=== PATIENT | male | born 1960 | race Caucasian/White ===

== ENCOUNTER 2016-07-10 23:14 | Emergency (ER) | payer SELFPAY ==
[2016-07-10 23:22] VITALS: BP 115/84
[2016-07-11 01:25] LABS: Basophils % (Auto) 0.7 % (0.0-1.8); Eosinophils % (Auto) 1.5 % (0.0-4.3); Hematocrit 41.1 % (35.5-45.6); Hemoglobin 13.4 gm/dl (11.8-15.2); Mean Corpuscular HGB Conc 33 % (32-34); Mean Corpuscular Hemoglobin 27 pg (28-32); Mean Corpuscular Volume 83 fl (84-94); Platelet Count 172 K/mm3 (140-440); Red Blood Count 4.96 M/mm3 (3.65-5.03); Red Cell Distribution Width 15.4 % (13.2-15.2); White Blood Count 8.4 K/mm3 (4.5-11.0)
[2016-07-11 02:19] LABS: Alanine Aminotransferase 24 units/L (7-56); Albumin 4.2 g/dL (3.9-5); Albumin/Globulin Ratio 1.4 %; Alkaline Phosphatase 47 units/L (35-129); Anion Gap 16 mmol/L; BUN/Creatinine Ratio 15.71; Bilirubin,Total 0.4 mg/dL (0.1-1.2); Blood Urea Nitrogen 11 mg/dL (9-20); Calcium 9.4 mg/dL (8.4-10.2); Carbon Dioxide 27 mmol/L (22-30); Chloride 98.9 mmol/L (98-107); Glucose 114 mg/dL (75-100); Lipase 16 units/L (13-60); Sodium 138 mmol/L (137-145); Total Protein 7.1 g/dL (6.3-8.2)
--- NOTE | 2016-07-13 19:04 | ED Elopement Review ---
ED Pt Elopement review - Results review Lab results: Laboratory Tests 07/10/16 07/11/16 07/11/16 23:34 00:39 00:39 WBC 8.4 RBC 4.96 Hgb 13.4 Hct 41.1 MCV 83 L MCH 27 L MCHC 33 RDW 15.4 H Plt Count 172 Lymph % (Auto) 46.8 H Letcher % (Auto) 7.7 H Eos % (Auto) 1.5 Baso % (Auto) 0.7 Lymph # 3.9 Letcher # 0.6 Eos # 0.1 Baso # 0.1 Seg Neutrophils % 43.3 Seg Neutrophils # 3.6 Sodium 138 Potassium 4.0 Chloride 98.9 Carbon Dioxide 27 Anion Gap 16 BUN 11 Creatinine 0.7 L Estimated GFR > 60 BUN/Creatinine Ratio 15.71 Glucose 114 H POC Glucose 111 H Calcium 9.4 Total Bilirubin 0.4 AST 19 ALT 24 Alkaline Phosphatase 47 Total Protein 7.1 Albumin 4.2 Albumin/Globulin Ratio 1.4 Lipase 16 - Call Back decision Pt Call Back Decision: Call pt to return to ED [facility] (testicular pain should be further evaluated)
== END 2016-07-11 04:10 | disposition left against medical advice (07) ==
LOC: ED 23:14
DX: R73.9 Hyperglycemia, unspecified (principal); Z53.21 Procedure and treatment not carried out due to patient leaving prior to being seen by health care provider
CPT/HCPCS: 36415; 80053; 82962; 83690; 85025

== ENCOUNTER 2020-11-06 14:05 | Emergency (ER) | payer BC ==
[2020-11-06 16:00] VITALS: BP 127/69
--- NOTE | 2020-11-06 17:32 | Event Note ---
ED Screening Note Date of service: 11/06/20 Time: 17:31 ED Screening Note: 60-year-old -French male presents to the emergency room complaining of chills shortness of breath cough and night sweats. Patient has a past medical history of diabetes. Patient reports he has never felt this bad before. He is vaccinated. Does have a primary care provider Dr. Miller. This initial assessment/diagnostic orders/clinical plan/treatment(s) is/are subject to change based on patients health status, clinical progression and re- assessment by fellow clinical providers in the ED. Further treatment and workup at subsequent clinical providers discretion. Patient/guardian urged not to elope from the ED as their condition may be serious if not clinically assessed and managed. Initial orders include: cxr, cbc, cmp
--- NOTE | 2020-11-06 17:57 | XRay Report ---
CHEST 2 VIEWS 1740 INDICATION / CLINICAL INFORMATION: sob,cough COMPARISON: None available. FINDINGS: SUPPORT DEVICES: None. HEART / MEDIASTINUM: No significant abnormality. LUNGS / PLEURA: On lateral projection increased density is seen in the posterior base which is diffic ult to visualize well on PA view for laterality. I am concerned this represents mild basilar infiltra te. No pleural effusions are seen. PA view shows bilateral nipple shadows. No pneumothorax. ADDITIONAL FINDINGS: No significant additional findings. IMPRESSION: Question of basilar infiltrate as above Signer Name: Manan Garcia MD Signed: 11/06/2020 5:52 PM Workstation Name: [id number]
[2020-11-06 18:19] LABS: Basophils % (Auto) 0.8 % (0.0-1.8); Eosinophils # (Auto) 0.1 K/mm3 (0.0-0.4); Eosinophils % (Auto) 0.9 % (0.0-4.3); Hematocrit 42.5 % (35.5-45.6); Hemoglobin 14.4 gm/dl (11.8-15.2); Lymphocytes # (Auto) 3.1 K/mm3 (1.2-5.4); Lymphocytes % (Auto) 51.8 % (13.4-35.0); Mean Corpuscular HGB Conc 34 % (32-34); Mean Corpuscular Volume 84 fl (84-94); Monocytes # (Auto) 0.4 K/mm3 (0.0-0.8); Monocytes % (Auto) 6.5 % (0.0-7.3); Platelet Count 119 K/mm3 (140-440); Red Blood Count 5.04 M/mm3 (3.65-5.03); Red Cell Distribution Width 15.3 % (13.2-15.2)
[2020-11-06 18:26] LABS: Alanine Aminotransferase 13 units/L (7-56); Albumin 4.1 g/dL (3.9-5); BUN/Creatinine Ratio 13; Blood Urea Nitrogen 12 mg/dL (9-20); Calcium 9.6 mg/dL (8.4-10.2); Hemolysis Index 6
--- NOTE | 2020-11-06 18:56 | Emergency Department Report ---
ED General Adult HPI - General Chief complaint: Upper Respiratory Infection Stated complaint: COLD SYMPTOMS Time Seen by Provider: 11/06/20 18:43 Source: patient Mode of arrival: Ambulatory Limitations: No Limitations - History of Present Illness Initial comments: 60-year-old male patient with history of diabetes presents emergency department with complaints of cough, chills, and body aches starting this week. No known sick contacts. No current steroid or antibiotic use. No recent travel. Patient received his COVID-19 vaccination series. No history of pre-existing lung conditions. Patient has never been diagnosed with pneumonia. Denies fever , chest pain, palpitations, wheezing, syncope, lower extremity pain/swelling. Denies all other complaints at this time. - Related Data Previous Rx's Medication Instructions Recorded Last Taken Type Amoxicillin/Potassium Clav 2 each PO BID #28 tab.er.12h 11/06/20 Unknown Rx [Augmentin XR 1000MG 12HR] Azithromycin [Zithromax Z-RAOMNA] 250 mg PO DAILY #6 tablet 11/06/20 Unknown Rx Allergies Allergy/AdvReac Type Severity Reaction Status Date / Time No Known Allergies Allergy Unverified 07/10/16 23:43 ED Review of Systems ROS: Stated complaint: COLD SYMPTOMS Other details as noted in HPI Other: GENERAL: Positive for chills. ENT: Negative for ear pain, difficulty hearing, sore throat, nasal congestion, epistaxis. CARDIOVASCULAR: Negative for chest pain, palpitations, lower extremity swelling. PULMONARY: Positive for cough. GASTROINTESTINAL: Negative for abdominal pain, nausea, vomiting, diarrhea, constipation. MUSCULOSKELETAL: Positive for myalgias. NEUROLOGICAL: Negative for headache, seizure, syncope, paresthesias, weakness. INTEGUMENTARY: Negative for erythema, rash, diaphoresis, laceration, ecchymosis. HEMATOLOGICAL: Negative for hemoptysis, hematemesis, hematochezia, hematuria. PSYCHIATRIC: Negative for hallucinations, suicidal ideation, homicidal ideation, anxiety, depression. ED Past Medical Hx - Past Medical History Previous Medical History?: Yes Hx Diabetes: Yes - Social History Smoking Status: Never Smoker Substance Use Type: None - Medications Home Medications: Home Medications Medication Instructions Recorded Confirmed Last Taken Type Amoxicillin/Potassium Clav 2 each PO BID #28 tab.er.12h 11/06/20 Unknown Rx [Augmentin XR 1000MG 12HR] Azithromycin [Zithromax Z-RAMONA] 250 mg PO DAILY #6 tablet 11/06/20 Unknown Rx ED Physical Exam - General Limitations: No Limitations - Other Other exam information: General: Awake and alert. No acute distress. Head: Atraumatic, normocephalic. Eyes: EOMI. Pupils are equal and round. Normal sclera and conjunctiva. ENT: Oral mucosa is moist. Normal pharyngeal exam. Neck: Supple. No lymphadenopathy. Pulmonary: No respiratory distress. Clear to auscultation bilaterally. Cardiac: Regular rate and rhythm. Pulses are palpable and equal bilaterally. No lower extremity cyanosis or edema. Skin: Warm and dry. No rashes. Abdomen: Soft, non-tender, non-protuberant. No guarding, rigidity, or rebound. Bowel sounds are normal. No organomegaly or masses noted. Back: Normal alignment. No CVA tenderness. Extremities: Symmetrical. Full range of motion intact. Neurological: Alert and oriented, appropriately interactive, no focal deficits. Psych: Cooperative. Appropriate mood and affect. Speech is evenly metered. Thoughts are logically construed. ED Course Vital Signs 11/06/20 15:59 Temperature 99.3 F Pulse Rate 72 Respiratory 18 Rate Blood Pressure 127/69 O2 Sat by Pulse 99 Oximetry ED Medical Decision Making - Lab Data Result diagrams: 11/06/20 17:45 11/06/20 17:45 - Radiology Data [facility] [address] [place] [address] XRay Report Signed Patient: ARASELI CEJA MR#: [id number] : 1960 Acct:[id number] Age/Sex: 60 / M ADM Date: 11/06/20 Loc: ED Attending Dr: Ordering Physician: MARIAH BERG Date of Service: 11/06/20 Procedure(s): XR chest routine 2V Accession Number(s): [id number] cc: MARIAH BERG Fluoro Time In Minutes: CHEST 2 VIEWS 1740 INDICATION / CLINICAL INFORMATION: sob,cough COMPARISON: None available. FINDINGS: SUPPORT DEVICES: None. HEART / MEDIASTINUM: No significant abnormality. LUNGS / PLEURA: On lateral projection increased density is seen in the posterior base which is difficult to visualize well on PA view for laterality. I am concerned this represents mild basilar infiltrate. No pleural effusions are seen. PA view shows bilateral nipple shadows. No pneumothorax. ADDITIONAL FINDINGS: No significant additional findings. IMPRESSION: Question of basilar infiltrate as above Signer Name: Manan Garcia MD Signed: 11/06/2020 5:52 PM Workstation Name: [id number] Transcribed By: TE Dictated By: Manan Garcia MD Electronically Authenticated By: Manan Garcia MD Signed Date/Time: 11/06/201751 DD/ 50 TD/TT: - Medical Decision Making Differential diagnosis including but not limited to: pneumonia, influenza, pleural effusion, congestive heart failure, viral infection On reevaluation, patient remains stable. No hypoxia, no respiratory distress. Labs show hyperglycemia, consistent with reported history of diabetes. Chest x- ray shows questionable basilar infiltrate suggestive of pneumonia. He is afebrile, vital signs are stable, appears well-hydrated, no respiratory distress. Patient is an appropriate candidate for outpatient management per PSI risk stratification. Additionally, patient has an established primary care provider. Patient will be discharged home with Augmentin + Azithromycin per current IDSA community-acquired pneumonia guidelines. He has been provided with a copy of his chest x-ray results to take with him to his primary care provider this week during his follow-up appointment. Patient expressed understanding and is agreeable to plan of care. Disease transmission precautions discussed. Strict return precautions provided. Repeat exam is unremarkable and benign. History, exam, diagnostic testing, and current condition do not suggest worrisome pathology to warrant further testing, continued ED treatment, admission, or surgical evaluation at this point. Given the low probability of a significant medical illness, it would be more likely to result in harm than benefit to perform further testing at this stage. Discussed findings, presumptive diagnosis, need for follow-up and specific signs/symptoms that should prompt immediate return to the emergency department. Instructions were explained in detail to the patient in addition to giving written discharge information. Patient expressed understanding and was given the opportunity to ask questions, all of which were satisfactorily answered prior to discharge home. Critical care attestation.: If time is entered above; I have spent that time in minutes in the direct care of this critically ill patient, excluding procedure time. ED Disposition Clinical Impression: Pneumonia Qualifiers: Pneumonia type: due to unspecified organism Laterality: unspecified laterality Lung location: lower lobe of lung Qualified Code(s): J18.9 - Pneumonia, unspecified organism Disposition: HOME / SELF CARE / HOMELESS Is pt being admited?: No Does the pt Need Aspirin: No Condition: Stable Instructions: Bacterial Pneumonia (ED), Community-Acquired Pneumonia, Adult, [id number] Additional Instructions: Take Tylenol every 4 hours and Motrin every 8 hours as needed for pain. Take [id number] cough/cold medications as directed for symptomatic relief. Take Augmentin and Azithromycin with food as directed. Increase your dietary intake of probiotic rich foods while taking these medications. Rest. Drink plenty of fluids. Wash hands frequently to prevent disease transmission. Do not share food or drinks with others. Follow-up with your primary care provider this week. Call Sunday to schedule appointment. Bring a copy of today's chest x-ray results with you to your follow-up appointment. Return to the emergency department immediately for new or worsening symptoms. Specifically, return to the emergency department immediately for fever, chest pain, difficulty breathing, dehydration, mental status changes, rash, or any other concerns. Prescriptions: Amoxicillin/Potassium Clav [Augmentin XR 1000MG 12HR] 2 each PO BID #28 tab.er.12h Azithromycin [Zithromax Z-RAMONA] 250 mg PO DAILY #6 tablet Referrals: [facility] [Provider Group] - 3-5 Days Forms: Work/School Release Form(ED) Time of Disposition: 19:03
== END 2020-11-06 19:39 | disposition home or self-care (01) ==
LOC: ED 14:05
DX: J18.9 Pneumonia, unspecified organism (principal); E11.9 Type 2 diabetes mellitus without complications; Z79.899 Other long term (current) drug therapy
CPT/HCPCS: 36415; 71046; 80053; 85025; 99283

== ENCOUNTER 2020-11-12 00:18 | Emergency (ER) | payer BC | END 2020-11-12 07:27 | disposition left against medical advice (07) | LOC: ED 00:18 | DX: U07.1 COVID-19 (principal); Z53.21 Procedure and treatment not carried out due to patient leaving prior to being seen by health care provider ==

== ENCOUNTER 2021-07-21 05:35 | Inpatient (IN) | payer BC, OTHER ==
[2021-07-21] MEDS ORDERED: IPRATROPIUM/ALBUTEROL SULFATE 3 ML AMPUL.NEB IH ONE (06:54)
[2021-07-21] MEDS ORDERED: ALBUTEROL 2.5 MG/3 ML NEBU IH ONE (06:55)
--- NOTE | 2021-07-21 07:17 | Emergency Department Report ---
ED Shortness of Breath HPI - General Chief Complaint: Dyspnea/Respdistress Stated Complaint: SOB Time Seen by Provider: 07/21/21 06:28 Source: patient Mode of arrival: Ambulatory Limitations: No Limitations - History of Present Illness Initial Comments: 61-year-old male that denies any history of heart disease, or lung disease who now presents with shortness of breath that started yesterday and progressively getting worse. Patient denies any long distance travel. Patient also reports that he has had all the necessary COVID shots. Patient denies any palpitation or chest pain as sensation. No fever or chills noted. I just cannot catch my breath he says. Patient also denies any smoking or alcohol use. No cold or heat intolerance reported. No other modifying or associated factors reported. - Related Data Previous Rx's Medication Instructions Recorded Last Taken Type Amoxicillin/Potassium Clav 2 each PO BID #28 tab.er.12h 11/06/20 Unknown Rx [Augmentin XR 1000MG 12HR] Azithromycin [Zithromax Z-RAMONA] 250 mg PO DAILY #6 tablet 11/06/20 Unknown Rx Allergies Allergy/AdvReac Type Severity Reaction Status Date / Time No Known Allergies Allergy Unverified 07/10/16 23:43 ED Review of Systems ROS: Stated complaint: SOB Other details as noted in HPI Comment: All other systems reviewed and negative Respiratory: shortness of breath, SOB at rest Cardiovascular: denies: chest pain, palpitations, edema ED Past Medical Hx - Past Medical History Hx Diabetes: Yes - Social History Smoking Status: Never Smoker Substance Use Type: None - Medications Home Medications: Home Medications Medication Instructions Recorded Confirmed Last Taken Type Amoxicillin/Potassium Clav 2 each PO BID #28 tab.er.12h 11/06/20 Unknown Rx [Augmentin XR 1000MG 12HR] Azithromycin [Zithromax Z-RAMONA] 250 mg PO DAILY #6 tablet 11/06/20 Unknown Rx ED Physical Exam - General Limitations: No Limitations General appearance: alert, in distress (Due to shortness of breath) - Head Head exam: Present: normal inspection - Eye Eye exam: Present: normal appearance - ENT ENT exam: Present: normal exam, normal orophraynx - Neck Neck exam: Present: normal inspection - Respiratory Respiratory exam: Present: normal lung sounds bilaterally, respiratory distress. Absent: accessory muscle use - Cardiovascular Cardiovascular Exam: Present: regular rate, normal rhythm, normal heart sounds - GI/Abdominal GI/Abdominal exam: Present: soft, normal bowel sounds. Absent: distended, tenderness - Extremities Exam Extremities exam: Present: normal inspection, normal capillary refill. Absent: pedal edema - Back Exam Back exam: Present: normal inspection - Neurological Exam Neurological exam: Present: alert, oriented X3 - Psychiatric Psychiatric exam: Present: normal affect, normal mood - Skin Skin exam: Present: warm, dry, intact, normal color ED Course Vital Signs 07/21/21 07/21/21 07/21/21 05:38 06:34 07:45 Temperature 97.8 F 98.5 F Pulse Rate 82 76 Pulse Rate [ 84 Anterior Bilateral] Respiratory 20 21 Rate Respiratory 22 Rate [Anterior Bilateral] Blood Pressure 174/105 163/92 [Right] O2 Sat by Pulse 95 95 Oximetry 07/21/21 09:16 Temperature Pulse Rate Pulse Rate [ Anterior Bilateral] Respiratory 22 Rate Respiratory Rate [Anterior Bilateral] Blood Pressure [Right] O2 Sat by Pulse 95 Oximetry - Reevaluation(s) Reevaluation #1: 07/21/21 07:15 Here with shortness of breath that started 24 hours ago progressively getting worse--unsure the exact cause but differential could include ND, PE, CHF, anxiety, or as a result of pulmonary edema. So we will go ahead and order routine dyspnea work-up including chest x-ray, troponin, EKG, BNP, and CBC with CMP and urinalysis for any infectious process or electrolyte abnormality. 07/21/21 07:18 We also check COVID 19 Reevaluation #2: 07/21/21 08:38 Chest x-ray noted with vascular congestion with likely CHF coupled with elevated BNP at 2146--which explains patient's worsening shortness of breath--we will go ahead and give 40 mg of Lasix for symptoms relief. He has had breathing treatment with DuoNeb x1 with some improvement. Since this is new diagnosis CHF we will go ahead and admit patient to the hospital for further evaluation and treatment and with cardiac consult. Reevaluation #3: 07/21/21 09:10 I called and spoke with Dr. Katz who was taking call for Dr. Go--he accepted patient for further evaluation and treatment. Patient needs to be admitted to Dr. Carrera-- ED Medical Decision Making - Lab Data Result diagrams: 07/21/21 07:01 07/21/21 07:01 Critical care attestation.: If time is entered above; I have spent that time in minutes in the direct care of this critically ill patient, excluding procedure time. ED Disposition Clinical Impression: Shortness of breath Heart failure Qualifiers: Heart failure type: unspecified Heart failure chronicity: unspecified Qualified Code(s): I50.9 - Heart failure, unspecified Disposition: 09 ADMITTED INPATIENT Is pt being admited?: No Does the pt Need Aspirin: No Condition: Stable Time of Disposition: 09:12 (Spoke to Dr Katz pt to Dr Carrera)
[2021-07-21 07:42] LABS: Eosinophils # (Auto) 0.1 K/mm3 (0.0-0.4); Eosinophils % (Auto) 1.6 % (0.0-4.3); Hematocrit 39.7 % (35.5-45.6); Hemoglobin 13.2 gm/dl (11.8-15.2); Lymphocytes # (Auto) 2.6 K/mm3 (1.2-5.4); Lymphocytes % (Auto) 51.8 % (13.4-35.0); Mean Corpuscular HGB Conc 33 % (32-34); Mean Corpuscular Volume 83 fl (84-94); Monocytes # (Auto) 0.3 K/mm3 (0.0-0.8); Monocytes % (Auto) 6.1 % (0.0-7.3); Platelet Count 161 K/mm3 (140-440); Red Blood Count 4.78 M/mm3 (3.65-5.03); Red Cell Distribution Width 17.1 % (13.2-15.2)
[2021-07-21 07:46] LABS: INR 1.06 (0.87-1.13)
[2021-07-21 07:47] LABS: Partial Thromboplastin Time 33.1 Sec. (24.2-36.6)
--- NOTE | 2021-07-21 07:47 | XRay Report ---
CHEST 1 VIEW INDICATION: sob. COMPARISON: 11/06/2020 FINDINGS: Support devices: None. Heart: New borderline to mild cardiomegaly Lungs/Pleura: New pulmonary venous congestion and trace right pleural effusion. No infiltrate or pneu mothorax. Additional findings: None. IMPRESSION: Mild CHF/volume overload which is new since 11/06/2020. Signer Name: Deyvi Vale Jr, MD Signed: 07/21/2021 7:43 AM Workstation Name: [id number]
[2021-07-21 07:58] LABS: Alanine Aminotransferase 23 units/L (7-56); Albumin 4.1 g/dL (3.9-5); BUN/Creatinine Ratio 18; Blood Urea Nitrogen 16 mg/dL (9-20); Hemolysis Index 4
[2021-07-21] MEDS ORDERED: FUROSEMIDE 40 MG/4 ML INJ IV ONE (08:44)
[2021-07-21] MEDS ORDERED: ONDANSETRON 4 MG/2 ML INJ IV PRN (09:12)
[2021-07-21] MEDS ORDERED: ACETAMINOPHEN 325 MG TAB PO PRN (09:12)
[2021-07-21 09:54] LABS: Bilirubin,Urine NEG (Negative); Blood,Urine NEG (Negative); Color,Urine Yellow (Yellow); Mucus,Urine FEW /HPF; Protein,Urine <15 mg/dL mg/dL (Negative); WBC,Urine < 1.0 /HPF (0.0-6.0)
--- NOTE | 2021-07-21 10:49 | Electrocardiograph Report ---
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
--- NOTE | 2021-07-21 13:01 | History and Physical Report ---
History of Present Illness Date of examination: 07/21/21 Date of admission: 07/21/21 09:14 Chief complaint: Worsening shortness of breath History of present illness: 61-year-old male patient with no significant past medical history presented to the emergency room with shortness of breath of 1 to 2 days duration , worse since yesterday . Patient did not have any similar symptoms in the past, denies chest pain, sometimes feels short of breath on activity Patient denies any fever or cough, no upper respiratory symptoms, denies nausea vomiting or abdominal pain Initial work-up in the emergency room On chest x-ray mild CHF/volume overload which is new and patient's proBNP is high consistent with congestive heart failure probably new onset. No other complaints Past History Past Medical History: No medical history Past Surgical History: No surgical history Social history: denies: smoking, alcohol abuse, prescription drug abuse Family history: no significant family history Medications and Allergies Allergies Allergy/AdvReac Type Severity Reaction Status Date / Time No Known Allergies Allergy Unverified 07/10/16 23:43 Home Medications Medication Instructions Recorded Confirmed Last Taken Type Amoxicillin/Potassium Clav 2 each PO BID #28 tab.er.12h 11/06/20 Unknown Rx [Augmentin XR 1000MG 12HR] Azithromycin [Zithromax Z-RAMONA] 250 mg PO DAILY #6 tablet 11/06/20 Unknown Rx Active Meds: Active Medications Acetaminophen (Acetaminophen 325 Mg Tab) 650 mg PO Q4H PRN PRN Reason: Pain MILD(1-3)/Fever >100.5/TAN Morphine Sulfate (Morphine 2 Mg/1 Ml Inj) 2 mg IV Q4H PRN PRN Reason: Pain, Moderate (4-6) Ondansetron HCl (Ondansetron 4 Mg/2 Ml Inj) 4 mg IV Q8H PRN PRN Reason: Nausea And Vomiting Sodium Chloride (Sodium Chloride 0.9% 10 Ml Flush Syringe) 10 ml IV BID JITENDRA Sodium Chloride (Sodium Chloride 0.9% 10 Ml Flush Syringe) 10 ml IV PRN PRN PRN Reason: LINE FLUSH Review of Systems Constitutional: weakness, no weight loss, no weight gain Cardiovascular: shortness of breath, no chest pain, no orthopnea, no palpitations Respiratory: no cough, no cough with sputum Gastrointestinal: no abdominal pain, no nausea, no vomiting Genitourinary Male: no dysuria, no hematuria Musculoskeletal: no myalgias, no arthritis Integumentary: no rash, no lesions Neurological: no head injury, no weakness, no seizures Psychiatric: no anxiety, no memory loss Endocrine: no cold intolerance, no heat intolerance Hematologic/Lymphatic: no easy bruising, no easy bleeding Allergic/Immunologic: allergic rhinitis, no urticaria Exam - Constitutional Vitals: Temp Pulse Resp BP Pulse Ox 97.7 F 72 16 160/90 99 07/21/21 11:19 07/21/21 11:19 07/21/21 11:19 07/21/21 11:19 07/21/21 11:19 General appearance: Present: no acute distress, well-nourished - EENT Eyes: Present: PERRL, EOM intact - Neck Neck: Present: supple, normal ROM - Respiratory Respiratory effort: normal Respiratory: bilateral: diminished, negative: rales, rhonchi - Cardiovascular Rhythm: regular Heart Sounds: Present: S1 & S2 - Extremities Extremities: pulses intact, No edema Peripheral Pulses: within normal limits - Integumentary Integumentary: Present: clear, warm - Musculoskeletal Musculoskeletal: strength equal bilaterally, generalized weakness - Psychiatric Psychiatric: appropriate mood/affect, cooperative - Neurologic Neurologic: CNII-XII intact, moves all extremities HEART Score - HEART Score Troponin: Troponin T < 0.010 ng/mL (0.00-0.029) 07/21/21 07:01 Results - Labs CBC & Chem 7: 07/21/21 07:01 07/21/21 07:01 Labs: Abnormal lab results 07/21/21 07/21/21 07/21/21 Range/Units 07:01 07:01 07:01 MCV 83 L (84-94) fl RDW 17.1 H (13.2-15.2) % Lymph % (Auto) 51.8 H (13.4-35.0) % Seg Neutrophils % 39.9 L (40.0-70.0) % PT 15.0 H (12.2-14.9) Sec. Glucose 115 H (75-100) mg/dL NT-Pro-B Natriuret Pep (0-900) pg/mL Total Protein 6.1 L (6.3-8.2) g/dL 07/21/21 Range/Units 07:01 MCV (84-94) fl RDW (13.2-15.2) % Lymph % (Auto) (13.4-35.0) % Seg Neutrophils % (40.0-70.0) % PT (12.2-14.9) Sec. Glucose (75-100) mg/dL NT-Pro-B Natriuret Pep 2146 H (0-900) pg/mL Total Protein (6.3-8.2) g/dL Assessment and Plan -- New onset congestive heart failure; IV diuretics, input output monitoring Low-sodium diet, fluid restriction Low-dose beta-blockers Echocardiogram for LV function ejection fraction Consider cardiology evaluation -- Hypertension; Low-dose Coreg, as needed hydralazine Monitor blood pressures adjust as needed -- DVT prophylaxis; Lovenox subcu Closely monitor the patient and adjust the management as needed Plan of care reviewed with the patient and the nurse
[2021-07-21] MEDS ORDERED: hydrALAZINE 20 MG/1 ML INJ IV PRN (13:30)
[2021-07-21] MEDS: hydrALAZINE 25 MG TAB PO SCH ×2 (15:21→21:29)
[2021-07-21] MEDS: carvediloL 3.125 MG TAB PO SCH (21:29)
[2021-07-22] MEDS: hydrALAZINE 25 MG TAB PO SCH ×3 (05:09→22:28)
[2021-07-22] MEDS: PANTOPRAZOLE 20 MG TAB PO SCH (07:36)
[2021-07-22] MEDS: carvediloL 3.125 MG TAB PO SCH ×2 (09:44→22:28)
[2021-07-22] MEDS: MORPHINE 2 MG/1 ML INJ IV PRN (09:50)
[2021-07-22] MEDS: FUROSEMIDE 40 MG/4 ML INJ IV SCH (09:50)
--- NOTE | 2021-07-22 10:44 | Electrocardiograph Report ---
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
[2021-07-22 12:02] LABS: Creatine Kinase MB 3.8 ng/mL (0.0-4.0)
--- NOTE | 2021-07-22 16:21 | Progress Note ---
Assessment and Plan Assessment and plan: -- New onset systolic congestive heart failure; Echo; LVEF 15 to 20% Severe global hypokinesis IV diuretics, input output monitoring Low-sodium diet, fluid restriction Low-dose beta-blockers, lisinopril Cardiology evaluation in the morning for ischemia work-up stress test versus left heart catheterization Daily weights --Dilated cardiomyopathy; EF 15 to 20% Antifailure medications , possible ischemia work-up cardiology consult --Hypertension; Low-dose Coreg, as needed hydralazine Monitor blood pressures adjust as needed --DVT prophylaxis; Lovenox subcutaneous --full code status Closely monitor the patient and adjust the management as needed Plan of care reviewed with the patient and the nurse History Interval history: I have seen and examined the patient at the bedside Patient's chart and medications reviewed Patient continues to have mild shortness of breath and vague chest discomfort Vital signs reviewed Hospitalist Physical - Constitutional Vitals: Temp Pulse Resp BP Pulse Ox 97.9 F 76 14 129/80 97 07/22/21 11:37 07/22/21 11:37 07/22/21 11:37 07/22/21 11:37 07/22/21 11:37 General appearance: Present: mild distress, well-nourished - EENT Eyes: Present: PERRL, EOM intact - Neck Neck: Present: supple, normal ROM - Respiratory Respiratory effort: normal Respiratory: bilateral: diminished, rales, negative: rhonchi, wheezing - Cardiovascular Rhythm: regular Heart Sounds: Present: S1 & S2 - Extremities Extremities: no ischemia, No edema - Abdominal General gastrointestinal: soft, non-tender, non-distended, normal bowel sounds - Integumentary Integumentary: Present: clear, warm - Psychiatric Psychiatric: appropriate mood/affect, cooperative - Neurologic Neurologic: CNII-XII intact, moves all extremities HEART Score - HEART Score Troponin: Troponin T < 0.010 ng/mL (0.00-0.029) 07/22/21 11:24 Results - Labs CBC & Chem 7: 07/21/21 07:01 07/21/21 07:01 Labs: Laboratory Last Values WBC 5.0 K/mm3 (4.5-11.0) 07/21/21 07:01 RBC 4.78 M/mm3 (3.65-5.03) 07/21/21 07:01 Hgb 13.2 gm/dl (11.8-15.2) 07/21/21 07:01 Hct 39.7 % (35.5-45.6) 07/21/21 07:01 MCV 83 fl (84-94) L 07/21/21 07:01 MCH 28 pg (28-32) 07/21/21 07:01 MCHC 33 % (32-34) 07/21/21 07:01 RDW 17.1 % (13.2-15.2) H 07/21/21 07:01 Plt Count 161 K/mm3 (140-440) 07/21/21 07:01 Lymph % (Auto) 51.8 % (13.4-35.0) H 07/21/21 07:01 [place] % (Auto) 6.1 % (0.0-7.3) 07/21/21 07:01 Eos % (Auto) 1.6 % (0.0-4.3) 07/21/21 07:01 Baso % (Auto) Oral And Maxillofacial Surgery Resident 07/21/21 07:01 Lymph # (Auto) 2.6 K/mm3 (1.2-5.4) 07/21/21 07:01 [place] # (Auto) 0.3 K/mm3 (0.0-0.8) 07/21/21 07:01 Eos # (Auto) 0.1 K/mm3 (0.0-0.4) 07/21/21 07:01 Baso # (Auto) 0.0 K/mm3 (0.0-0.1) 07/21/21 07:01 Seg Neutrophils % 39.9 % (40.0-70.0) L 07/21/21 07:01 Seg Neutrophils # 2.0 K/mm3 (1.8-7.7) 07/21/21 07:01 PT 15.0 Sec. (12.2-14.9) H 07/21/21 07:01 INR 1.06 (0.87-1.13) 07/21/21 07:01 APTT 33.1 Sec. (24.2-36.6) 07/21/21 07:01 Sodium 142 mmol/L (137-145) 07/21/21 07:01 Potassium 4.0 mmol/L (3.6-5.0) 07/21/21 07:01 Chloride 106.7 mmol/L (98-107) 07/21/21 07:01 Carbon Dioxide 25 mmol/L (22-30) 07/21/21 07:01 Anion Gap 14 mmol/L 07/21/21 07:01 BUN 16 mg/dL (9-20) 07/21/21 07:01 Creatinine 0.9 mg/dL (0.8-1.3) 07/21/21 07:01 Estimated GFR > 60 ml/min 07/21/21 07:01 BUN/Creatinine Ratio 18 % 07/21/21 07:01 Glucose 115 mg/dL (75-100) H 07/21/21 07:01 Calcium 9.0 mg/dL (8.4-10.2) 07/21/21 07:01 Total Bilirubin 0.60 mg/dL (0.1-1.2) 07/21/21 07:01 AST 21 units/L (5-40) 07/21/21 07:01 ALT 23 units/L (7-56) 07/21/21 07:01 Alkaline Phosphatase 61 units/L (35-129) 07/21/21 07:01 Total Creatine Kinase 155 units/L (55-170) 07/22/21 11:24 CK-MB (CK-2) 3.8 ng/mL (0.0-4.0) 07/22/21 11:24 CK-MB (CK-2) Rel Index 2.4 (0-4) 07/22/21 11:24 Troponin T < 0.010 ng/mL (0.00-0.029) 07/22/21 11:24 NT-Pro-B Natriuret Pep 2146 pg/mL (0-900) H 07/21/21 07:01 Total Protein 6.1 g/dL (6.3-8.2) L 07/21/21 07:01 Albumin 4.1 g/dL (3.9-5) 07/21/21 07:01 Albumin/Globulin Ratio 2.1 % 07/21/21 07:01 TSH 2.660 mlU/mL (0.270-4.200) 07/21/21 07:01 Urine Color Yellow (Yellow) 07/21/21 Unknown Urine Turbidity Clear (Clear) 07/21/21 Unknown Urine pH 6.0 (5.0-7.0) 07/21/21 Unknown Ur Specific [place] 1.013 (1.003-1.030) 07/21/21 Unknown Urine Protein <15 mg/dl mg/dL (Negative) 07/21/21 Unknown Urine Glucose (UA) Neg mg/dL (Negative) 07/21/21 Unknown Urine Ketones Neg mg/dL (Negative) 07/21/21 Unknown Urine Blood Neg (Negative) 07/21/21 Unknown Urine Nitrite Neg (Negative) 07/21/21 Unknown Urine Bilirubin Neg (Negative) 07/21/21 Unknown Urine Urobilinogen 4.0 mg/dL (<2.0) 07/21/21 Unknown Ur Leukocyte Esterase Neg (Negative) 07/21/21 Unknown Urine WBC (Auto) < 1.0 /HPF (0.0-6.0) 07/21/21 Unknown Urine RBC (Auto) 1.0 /HPF (0.0-6.0) 07/21/21 Unknown Urine Mucus Few /HPF 07/21/21 Unknown Gan/IV: Voiding Method Toilet Active Medications - Current Medications Current Medications: Generic Name Dose Route Start Last Admin Trade Name Freq PRN Reason Stop Dose Admin Acetaminophen 650 mg 07/21/21 09:12 07/22/21 07:35 Acetaminophen 325 Mg Tab PO 650 mg Q4H PRN Administration Pain MILD(1-3)/Fever >100.5/TAN Carvedilol 3.125 mg 07/21/21 22:00 07/22/21 09:44 Carvedilol 3.125 Mg Tab PO 3.125 mg BID JITENDRA Administration Furosemide 40 mg 07/22/21 10:00 07/22/21 09:50 Furosemide 40 Mg/4 Ml Inj IV 40 mg QDAY JITENDRA Administration Hydralazine HCl 25 mg 07/21/21 14:00 07/22/21 14:09 Hydralazine 25 Mg Tab PO 25 mg Q8HR JITENDRA Administration Hydralazine HCl 10 mg 07/21/21 13:30 Hydralazine 20 Mg/1 Ml Inj IV Q4H PRN Hypertension Morphine Sulfate 2 mg 07/21/21 09:12 07/22/21 09:50 Morphine 2 Mg/1 Ml Inj IV 2 mg Q4H PRN Administration Pain, Moderate (4-6) Ondansetron HCl 4 mg 07/21/21 09:12 Ondansetron 4 Mg/2 Ml Inj IV Q8H PRN Nausea And Vomiting Pantoprazole Sodium 20 mg 07/22/21 07:30 07/22/21 07:36 Pantoprazole 20 Mg Tab PO 20 mg QDAC JITENDRA Administration Sodium Chloride 10 ml 07/21/21 10:00 07/22/21 09:45 Sodium Chloride 0.9% 10 Ml Flush Syringe IV 10 ml BID JITENDRA Administration Sodium Chloride 10 ml 07/21/21 09:12 Sodium Chloride 0.9% 10 Ml Flush Syringe IV PRN PRN LINE FLUSH
[2021-07-23] MEDS: hydrALAZINE 25 MG TAB PO SCH (07:31)
[2021-07-23] MEDS: LISINOPRIL 5 MG TAB PO SCH (09:59)
[2021-07-23] MEDS: carvediloL 3.125 MG TAB PO SCH ×2 (09:59→21:32)
[2021-07-23] MEDS: PANTOPRAZOLE 20 MG TAB PO SCH (09:59)
[2021-07-23] MEDS: MORPHINE 2 MG/1 ML INJ IV PRN ×2 (09:59→17:33)
[2021-07-23] MEDS: FUROSEMIDE 40 MG/4 ML INJ IV SCH ×2 (09:59→17:33)
--- NOTE | 2021-07-23 14:21 | Consultation ---
History of Present Illness Consult date: 07/23/21 Requesting physician: YESENIA HERNANDEZ Consult reason: congestive heart failure History of present illness: He presented with a 3 day history of progressive shortness of breath associated with orthopnea and recurrent substernal chest pressure/tightness. CXR is consistent with HF. Echocardiogram revealed an EF of 15-20%. RVSP = 68 mmHg. There is no history of a respiratory or G.I. viral prodrome. On telemetry, he has demonstrated frequent PVCs with an 8 beat run of nonsustained VT last night. Past History Past Medical History: No medical history Past Surgical History: No surgical history Social history: smoking (Jairohe previously smoked cigars). denies: alcohol abuse Family history: CAD (Both parents have suffered myocardial infarction.) Medications and Allergies Allergies Allergy/AdvReac Type Severity Reaction Status Date / Time No Known Allergies Allergy Unverified 07/10/16 23:43 Home Medications Medication Instructions Recorded Confirmed Last Taken Type No Known Home Medications [No 07/22/21 07/22/21 Unknown History Reported Home Medications] Active Meds: Active Medications Acetaminophen (Acetaminophen 325 Mg Tab) 650 mg PO Q4H PRN PRN Reason: Pain MILD(1-3)/Fever >100.5/TAN Last Admin: 07/22/21 07:35 Dose: 650 mg Carvedilol (Carvedilol 3.125 Mg Tab) 3.125 mg PO BID [facility] Last Admin: 07/23/21 09:59 Dose: 3.125 mg Furosemide (Furosemide 40 Mg/4 Ml Inj) 40 mg IV QDAY [facility] Last Admin: 07/23/21 09:59 Dose: 40 mg Lisinopril (Lisinopril 5 Mg Tab) 2.5 mg PO QDAY [facility] Last Admin: 07/23/21 09:59 Dose: 2.5 mg Morphine Sulfate (Morphine 2 Mg/1 Ml Inj) 2 mg IV Q4H PRN PRN Reason: Pain, Moderate (4-6) Last Admin: 07/23/21 09:59 Dose: 2 mg Ondansetron HCl (Ondansetron 4 Mg/2 Ml Inj) 4 mg IV Q8H PRN PRN Reason: Nausea And Vomiting Pantoprazole Sodium (Pantoprazole 20 Mg Tab) 20 mg PO QDAC [facility] Last Admin: 07/23/21 09:59 Dose: 20 mg Sodium Chloride (Sodium Chloride 0.9% 10 Ml Flush Syringe) 10 ml IV BID JITENDRA Last Admin: 07/23/21 10:00 Dose: 10 ml Sodium Chloride (Sodium Chloride 0.9% 10 Ml Flush Syringe) 10 ml IV PRN PRN PRN Reason: LINE FLUSH Review of Systems Constitutional: no fever, no chills Ears, nose, mouth and throat: no ear pain, no ear discharge, no nasal congestion, no nasal discharge, no sore throat Cardiovascular: chest pain, orthopnea, shortness of breath, dyspnea on exertion, no palpitations Respiratory: shortness of breath, no cough, no hemoptysis Gastrointestinal: no abdominal pain, no nausea, no vomiting, no diarrhea, no constipation Genitourinary Male: no dysuria, no urinary frequency Rectal: no pain, no bleeding Musculoskeletal: no neck stiffness, no neck pain, no myalgias Integumentary: no rash, no pruritis Neurological: no weakness, no parathesias, no headaches Endocrine: no cold intolerance, no heat intolerance Hematologic/Lymphatic: no easy bruising, no easy bleeding Allergic/Immunologic: no urticaria, no wheezing Physical Examination Vital Signs Temp Pulse Resp BP Pulse Ox 97.8 F 82 20 174/105 95 07/21/21 05:38 07/21/21 05:38 07/21/21 05:38 07/21/21 05:38 07/21/21 05:38 General appearance: no acute distress HEENT: Positive: EOMI, Normocephaly, Mucus Membranes Moist Neck: Positive: neck supple, trachea midline, JVD/HJR Cardiac: Positive: Reg Rate and Rhythm, S1/S2 Lungs: Positive: clear to auscultation Neuro: Positive: Grossly Intact Abdomen: Positive: Soft, Active Bowel Sounds. Negative: Tender Skin: Positive: Clear. Negative: Rash Musculoskeletal: Normal Range of Motion Extremities: Present: normal. Absent: edema Results 07/21/21 07:01 07/21/21 07:01 - Imaging and Cardiology EKG: image reviewed EKG interpretations - Telemetry EKG Rhythm: V-Tachycardia (NSVT) - EKG Sinus rhythms and dysrhythmias: sinus rhythm Myocardial infarction: septal [place] (old age or ind, anterior [place] (old age or i Assessment and Plan I agree with IV diuretics and other regimen as at present. Chest CTA pending, especially with elevated d-dimer and severe pulmonary hypertension of uncertain etiology. Obtain CRP, ESR, and magnesium. He will be scheduled for coronary angiography early next week. - Patient Problems (1) Acute HFrEF (heart failure with reduced ejection fraction) Current Visit: Yes Status: Acute (2) Chest pain Current Visit: Yes Status: Acute (3) Dilated cardiomyopathy Current Visit: Yes Status: Acute (4) Severe pulmonary hypertension Current Visit: Yes Status: Acute (5) NSVT (nonsustained ventricular tachycardia) Current Visit: Yes Status: Acute (6) Elevated d-dimer Current Visit: Yes Status: Acute
--- NOTE | 2021-07-23 14:23 | Progress Note ---
Assessment and Plan Assessment and plan: Assessment and plan: -- New onset systolic congestive heart failure; Echo; LVEF 15 to 20% Severe global hypokinesis IV diuretics, input output monitoring Low-sodium diet, fluid restriction Low-dose beta-blockers, lisinopril Cardiology evaluation in the morning for ischemia work-up stress test versus left heart catheterization Daily weights --Elevated D-dimers; CTA chest to rule out PE Lower extremity venous Doppler to rule out DVT --Dilated cardiomyopathy; EF 15 to 20% Antifailure medications , possible ischemia work-up cardiology consult --Hypertension; Low-dose Coreg, as needed hydralazine Monitor blood pressures adjust as needed --DVT prophylaxis; Lovenox subcutaneous --full code status Closely monitor the patient and adjust the management as needed Plan of care reviewed with the patient and the nurse Dry Sander recommendations noted and appreciated History Interval history: I have seen and examined the patient at the bedside Patient's chart and medications reviewed Patient with new onset congestive heart failure with ejection fraction of 10 to 20% feels slightly better Still has some shortness of breath Multiple family members at the bedside Hospitalist Physical - Constitutional Vitals: Temp Pulse Resp BP Pulse Ox 97.8 F 71 18 115/70 99 07/23/21 12:23 07/23/21 12:23 07/23/21 12:23 07/23/21 12:23 07/23/21 12:23 General appearance: Present: mild distress, well-nourished - EENT Eyes: Present: PERRL, EOM intact - Neck Neck: Present: supple, normal ROM - Respiratory Respiratory effort: normal Respiratory: bilateral: diminished, negative: rales, rhonchi, wheezing - Cardiovascular Rhythm: regular Heart Sounds: Present: S1 & S2 - Extremities Extremities: no ischemia, No edema - Abdominal General gastrointestinal: soft, non-tender, non-distended, normal bowel sounds - Integumentary Integumentary: Present: clear, warm - Psychiatric Psychiatric: appropriate mood/affect, cooperative - Neurologic Neurologic: moves all extremities HEART Score - HEART Score Troponin: Troponin T < 0.010 ng/mL (0.00-0.029) 07/22/21 11:24 Results - Labs CBC & Chem 7: 07/21/21 07:01 07/21/21 07:01 Labs: Laboratory Last Values WBC 5.0 K/mm3 (4.5-11.0) 07/21/21 07:01 RBC 4.78 M/mm3 (3.65-5.03) 07/21/21 07:01 Hgb 13.2 gm/dl (11.8-15.2) 07/21/21 07:01 Hct 39.7 % (35.5-45.6) 07/21/21 07:01 MCV 83 fl (84-94) L 07/21/21 07:01 MCH 28 pg (28-32) 07/21/21 07:01 MCHC 33 % (32-34) 07/21/21 07:01 RDW 17.1 % (13.2-15.2) H 07/21/21 07:01 Plt Count 161 K/mm3 (140-440) 07/21/21 07:01 Lymph % (Auto) 51.8 % (13.4-35.0) H 07/21/21 07:01 [place] % (Auto) 6.1 % (0.0-7.3) 07/21/21 07:01 Eos % (Auto) 1.6 % (0.0-4.3) 07/21/21 07:01 Baso % (Auto) Family Literacy Coordinator 07/21/21 07:01 Lymph # (Auto) 2.6 K/mm3 (1.2-5.4) 07/21/21 07:01 [place] # (Auto) 0.3 K/mm3 (0.0-0.8) 07/21/21 07:01 Eos # (Auto) 0.1 K/mm3 (0.0-0.4) 07/21/21 07:01 Baso # (Auto) 0.0 K/mm3 (0.0-0.1) 07/21/21 07:01 Seg Neutrophils % 39.9 % (40.0-70.0) L 07/21/21 07:01 Seg Neutrophils # 2.0 K/mm3 (1.8-7.7) 07/21/21 07:01 PT 15.0 Sec. (12.2-14.9) H 07/21/21 07:01 INR 1.06 (0.87-1.13) 07/21/21 07:01 APTT 33.1 Sec. (24.2-36.6) 07/21/21 07:01 D-Dimer 739.67 ng/mlDDU (0-234) H 07/23/21 07:32 Sodium 142 mmol/L (137-145) 07/21/21 07:01 Potassium 4.0 mmol/L (3.6-5.0) 07/21/21 07:01 Chloride 106.7 mmol/L (98-107) 07/21/21 07:01 Carbon Dioxide 25 mmol/L (22-30) 07/21/21 07:01 Anion Gap 14 mmol/L 07/21/21 07:01 BUN 16 mg/dL (9-20) 07/21/21 07:01 Creatinine 0.9 mg/dL (0.8-1.3) 07/21/21 07:01 Estimated GFR > 60 ml/min 07/21/21 07:01 BUN/Creatinine Ratio 18 % 07/21/21 07:01 Glucose 115 mg/dL (75-100) H 07/21/21 07:01 Calcium 9.0 mg/dL (8.4-10.2) 07/21/21 07:01 Total Bilirubin 0.60 mg/dL (0.1-1.2) 07/21/21 07:01 AST 21 units/L (5-40) 07/21/21 07:01 ALT 23 units/L (7-56) 07/21/21 07:01 Alkaline Phosphatase 61 units/L (35-129) 07/21/21 07:01 Total Creatine Kinase 155 units/L (55-170) 07/22/21 11:24 CK-MB (CK-2) 3.8 ng/mL (0.0-4.0) 07/22/21 11:24 CK-MB (CK-2) Rel Index 2.4 (0-4) 07/22/21 11:24 Troponin T < 0.010 ng/mL (0.00-0.029) 07/22/21 11:24 NT-Pro-B Natriuret Pep 2146 pg/mL (0-900) H 07/21/21 07:01 Total Protein 6.1 g/dL (6.3-8.2) L 07/21/21 07:01 Albumin 4.1 g/dL (3.9-5) 07/21/21 07:01 Albumin/Globulin Ratio 2.1 % 07/21/21 07:01 TSH 2.660 mlU/mL (0.270-4.200) 07/21/21 07:01 Urine Color Yellow (Yellow) 07/21/21 Unknown Urine Turbidity Clear (Clear) 07/21/21 Unknown Urine pH 6.0 (5.0-7.0) 07/21/21 Unknown Ur Specific [place] 1.013 (1.003-1.030) 07/21/21 Unknown Urine Protein <15 mg/dl mg/dL (Negative) 07/21/21 Unknown Urine Glucose (UA) Neg mg/dL (Negative) 07/21/21 Unknown Urine Ketones Neg mg/dL (Negative) 07/21/21 Unknown Urine Blood Neg (Negative) 07/21/21 Unknown Urine Nitrite Neg (Negative) 07/21/21 Unknown Urine Bilirubin Neg (Negative) 07/21/21 Unknown Urine Urobilinogen 4.0 mg/dL (<2.0) 07/21/21 Unknown Ur Leukocyte Esterase Neg (Negative) 07/21/21 Unknown Urine WBC (Auto) < 1.0 /HPF (0.0-6.0) 07/21/21 Unknown Urine RBC (Auto) 1.0 /HPF (0.0-6.0) 07/21/21 Unknown Urine Mucus Few /HPF 07/21/21 Unknown Gan/IV: Voiding Method Toilet Active Medications - Current Medications Current Medications: Generic Name Dose Route Start Last Admin Trade Name Freq PRN Reason Stop Dose Admin Acetaminophen 650 mg 07/21/21 09:12 07/22/21 07:35 Acetaminophen 325 Mg Tab PO 650 mg Q4H PRN Administration Pain MILD(1-3)/Fever >100.5/TAN Carvedilol 3.125 mg 07/21/21 22:00 07/23/21 09:59 Carvedilol 3.125 Mg Tab PO 3.125 mg BID JITENDRA Administration Furosemide 40 mg 07/22/21 10:00 07/23/21 09:59 Furosemide 40 Mg/4 Ml Inj IV 40 mg QDAY JITENDRA Administration Lisinopril 2.5 mg 07/23/21 10:00 07/23/21 09:59 Lisinopril 5 Mg Tab PO 2.5 mg QDAY JITENDRA Administration Morphine Sulfate 2 mg 07/21/21 09:12 07/23/21 09:59 Morphine 2 Mg/1 Ml Inj IV 2 mg Q4H PRN Administration Pain, Moderate (4-6) Ondansetron HCl 4 mg 07/21/21 09:12 Ondansetron 4 Mg/2 Ml Inj IV Q8H PRN Nausea And Vomiting Pantoprazole Sodium 20 mg 07/22/21 07:30 07/23/21 09:59 Pantoprazole 20 Mg Tab PO 20 mg QDAC JITENDRA Administration Sodium Chloride 10 ml 07/21/21 10:00 07/23/21 10:00 Sodium Chloride 0.9% 10 Ml Flush Syringe IV 10 ml BID JITENDRA Administration Sodium Chloride 10 ml 07/21/21 09:12 Sodium Chloride 0.9% 10 Ml Flush Syringe IV PRN PRN LINE FLUSH
--- NOTE | 2021-07-23 15:12 | Cat Scan Report ---
CT angio chest INDICATION / CLINICAL INFORMATION: Elevated D-dimers/chest pain shortness of breath/. TECHNIQUE: Axial CT images were obtained through the chest after injection of IV contrast. 3 plane MIP and/or 3D reconstructions were produced. All CT scans at this location are performed using CT dose reduction f or ALARA by means of automated exposure control. COMPARISON: None available. FINDINGS: PULMONARY ARTERIES: No pulmonary emboli. HEART: Left ventricular enlargement. There is significant reflux of contrast into the inferior vena c nichole and hepatic veins. MEDIASTINUM / JEREMIAH: No significant abnormality. LUNGS: There are a few bilateral pulmonary nodules.The two largest solid noncalcificed nodules measur e 5 mm in the posterior basal segment right lower lobe on image 113 of series 2 and measuring 5 mm in the superior segment of the left lower lobe on image 71 of series 2. There are several nodules along the fissures which are most likely related to fissural lymph nodes. Right middle lobe parenchymal ba nd most consistent subsegmental atelectasis. A septal thickening. Small right and no left pleural eff usions. No pneumothorax. ADDITIONAL FINDINGS: Generalized edema.. UPPER ABDOMEN: No acute findings. SKELETAL STRUCTURES: No significant osseous abnormality. IMPRESSION: 1. No CT evidence for pulmonary embolism. 2. Interstitial edema and small right pleural effusion. 3. Anasarca. Reflux of contrast consistent with elevated right atrial filling pressures. 4. Multiple nonspecific pulmonary nodules measure up to 5 mm. Follow up in one year should be conside red per Fleishner criteria. INCIDENTAL PULMONARY NODULE RECOMMENDATION RECOMMENDATION: Solid Nodule size <6 mm -- Single or Multiple - Low Risk Patient: No routine follow-up - High Risk Patient: Optional CT at 12 months Note These recommendations do not apply to lung cancer screening, patients with immunosuppression, o r patients with known primary cancer. Note Newly detected indeterminate nodule in persons 35 years of age or older. Persons under the age of 35 should not receive follow-up unless there is a known primary cancer. Note Perifissural Nodule is a fissure-attached/subpleural, homogeneous, solid nodule that has smooth margins and an oval, lentiform, or triangular shape. They represent about 20% of nodules detected in lung cancer screening, are invariably benign, and do not require follow-up. Nodules 10 mm or larger (or those with suspicious features) will continue to be managed based on the size criteria. Low Risk Patient = minimal or absent history of smoking and of other known risk factors. High Risk Patient = history of smoking or of other known risk factors. Nodule dimensions are average of long and short axes, rounded to the nearest millimeter. Based on 2017 Fleischner Society Guidelines found in Radiology 2017 284:228-243. https://doi.org/[email or web address] https://www.ncbi.nlm.nih.gov/pmc/articles/GXK5242468/ Signer Name: Archie Garcai MD Signed: 07/23/2021 3:07 PM Workstation Name: [id number]
[2021-07-24 03:42] LABS: C-Reactive Protein < 0.30 mg/dL (0.00-1.30)
[2021-07-24] MEDS: FUROSEMIDE 40 MG/4 ML INJ IV SCH (05:29)
[2021-07-24] MEDS ORDERED: MAGNESIUM SULFATE 4 GM/100 ML BAG IV ONE (08:00)
[2021-07-24] MEDS: LISINOPRIL 5 MG TAB PO SCH (09:50)
[2021-07-24] MEDS: carvediloL 3.125 MG TAB PO SCH ×2 (09:50→21:34)
[2021-07-24] MEDS: PANTOPRAZOLE 20 MG TAB PO SCH (09:50)
[2021-07-24 11:52] LABS: BUN/Creatinine Ratio 19; Blood Urea Nitrogen 19 mg/dL (9-20); Calcium 9.3 mg/dL (8.4-10.2); Hemolysis Index 23
--- NOTE | 2021-07-24 12:45 | Progress Note ---
Assessment and Plan Assessment and plan: Cardiology recommendations reviewed Planning left heart catheterization as well as right heart catheterization tomorrow Patient found to have nonsustained VT. asymptomatic Continue current management, patient may need LifeVest prior to discharge We will place n.p.o. from midnight -- New onset systolic congestive heart failure; Echo; LVEF 15 to 20% Severe global hypokinesis IV diuretics, input output monitoring Low-sodium diet, fluid restriction Low-dose beta-blockers, lisinopril Cardiology evaluation in the morning for ischemia work-up stress test versus left heart catheterization Daily weights --Elevated D-dimers; CTA chest negative for PE, small multiple lung nodules Lower extremity venous Doppler to rule out DVT --Multiple small lung nodules on CTA chest Patient will follow up agricultural engineering technicians to repeat the CT in a few months To monitor the nodules --Dilated cardiomyopathy; EF 15 to 20% Antifailure medications , possible ischemia work-up cardiology consult --Hypertension; Low-dose Coreg, as needed hydralazine Monitor blood pressures adjust as needed --DVT prophylaxis; Lovenox subcutaneous --full code status Closely monitor the patient and adjust the management as needed Plan of care reviewed with the patient and the nurse Cot Assembler recommendations noted and appreciated 07/24/2021; left heart catheterization and right heart catheterization tomorrow patient will be n.p.o. from midnight Cardiology recommendations noted and appreciated Advance care planning; I discussed in detail with the patient and the family members; Patient's diagnosis, patient's testing report discussed, patient's treatment plan discussed I discussed cardiology recommendations, I discussed plan of left heart catheterization tomorrow And the treatment plan post cath, discussed compliance with medications, diet, exercise in detail Patient and his spouse had numerous questions, answered all of them Advance care time spent +35 minutes History Interval history: I have seen and examined the patient at bedside Patient's chart and medications reviewed Patient feels better no new complaints Denies chest pain or shortness of breath Vital signs noted Hospitalist Physical - Constitutional Vitals: Temp Pulse Resp BP Pulse Ox 98.1 F 65 18 117/70 100 07/24/21 12:00 07/24/21 12:00 07/24/21 12:00 07/24/21 12:00 07/24/21 12:00 General appearance: Present: mild distress, well-nourished - EENT Eyes: Present: PERRL, EOM intact - Neck Neck: Present: supple, normal ROM - Respiratory Respiratory effort: normal Respiratory: bilateral: diminished, rales, negative: rhonchi, wheezing - Cardiovascular Rhythm: regular Heart Sounds: Present: S1 & S2 - Extremities Extremities: no ischemia, No edema - Abdominal General gastrointestinal: soft, non-tender, non-distended, normal bowel sounds - Integumentary Integumentary: Present: clear, warm - Psychiatric Psychiatric: appropriate mood/affect, cooperative - Neurologic Neurologic: CNII-XII intact, moves all extremities HEART Score - HEART Score Troponin: Troponin T < 0.010 ng/mL (0.00-0.029) 07/22/21 11:24 Results - Labs CBC & Chem 7: 07/21/21 07:01 07/24/21 11:13 Labs: Laboratory Last Values WBC 5.0 K/mm3 (4.5-11.0) 07/21/21 07:01 RBC 4.78 M/mm3 (3.65-5.03) 07/21/21 07:01 Hgb 13.2 gm/dl (11.8-15.2) 07/21/21 07:01 Hct 39.7 % (35.5-45.6) 07/21/21 07:01 MCV 83 fl (84-94) L 07/21/21 07:01 MCH 28 pg (28-32) 07/21/21 07:01 MCHC 33 % (32-34) 07/21/21 07:01 RDW 17.1 % (13.2-15.2) H 07/21/21 07:01 Plt Count 161 K/mm3 (140-440) 07/21/21 07:01 Lymph % (Auto) 51.8 % (13.4-35.0) H 07/21/21 07:01 [place] % (Auto) 6.1 % (0.0-7.3) 07/21/21 07:01 Eos % (Auto) 1.6 % (0.0-4.3) 07/21/21 07:01 Baso % (Auto) Field Operator 07/21/21 07:01 Lymph # (Auto) 2.6 K/mm3 (1.2-5.4) 07/21/21 07:01 [place] # (Auto) 0.3 K/mm3 (0.0-0.8) 07/21/21 07:01 Eos # (Auto) 0.1 K/mm3 (0.0-0.4) 07/21/21 07:01 Baso # (Auto) 0.0 K/mm3 (0.0-0.1) 07/21/21 07:01 Seg Neutrophils % 39.9 % (40.0-70.0) L 07/21/21 07:01 Seg Neutrophils # 2.0 K/mm3 (1.8-7.7) 07/21/21 07:01 ESR 14 mm/Hr (0-20) 07/23/21 23:20 PT 15.0 Sec. (12.2-14.9) H 07/21/21 07:01 INR 1.06 (0.87-1.13) 07/21/21 07:01 APTT 33.1 Sec. (24.2-36.6) 07/21/21 07:01 D-Dimer 739.67 ng/mlDDU (0-234) H 07/23/21 07:32 Sodium 139 mmol/L (137-145) 07/24/21 11:13 Potassium 4.1 mmol/L (3.6-5.0) 07/24/21 11:13 Chloride 99.4 mmol/L (98-107) 07/24/21 11:13 Carbon Dioxide 28 mmol/L (22-30) 07/24/21 11:13 Anion Gap 16 mmol/L 07/24/21 11:13 BUN 19 mg/dL (9-20) 07/24/21 11:13 Creatinine 1.0 mg/dL (0.8-1.3) 07/24/21 11:13 Estimated GFR > 60 ml/min 07/24/21 11:13 BUN/Creatinine Ratio 19 % 07/24/21 11:13 Glucose 109 mg/dL (75-100) H 07/24/21 11:13 Calcium 9.3 mg/dL (8.4-10.2) 07/24/21 11:13 Magnesium 1.60 mg/dL (1.7-2.3) L 07/23/21 23:20 Total Bilirubin 0.60 mg/dL (0.1-1.2) 07/21/21 07:01 AST 21 units/L (5-40) 07/21/21 07:01 ALT 23 units/L (7-56) 07/21/21 07:01 Alkaline Phosphatase 61 units/L (35-129) 07/21/21 07:01 Total Creatine Kinase 155 units/L (55-170) 07/22/21 11:24 CK-MB (CK-2) 3.8 ng/mL (0.0-4.0) 07/22/21 11:24 CK-MB (CK-2) Rel Index 2.4 (0-4) 07/22/21 11:24 Troponin T < 0.010 ng/mL (0.00-0.029) 07/22/21 11:24 C-Reactive Protein < 0.30 mg/dL (0.00-1.30) 07/23/21 23:20 NT-Pro-B Natriuret Pep 2146 pg/mL (0-900) H 07/21/21 07:01 Total Protein 6.1 g/dL (6.3-8.2) L 07/21/21 07:01 Albumin 4.1 g/dL (3.9-5) 07/21/21 07:01 Albumin/Globulin Ratio 2.1 % 07/21/21 07:01 TSH 2.660 mlU/mL (0.270-4.200) 07/21/21 07:01 Urine Color Yellow (Yellow) 07/21/21 Unknown Urine Turbidity Clear (Clear) 07/21/21 Unknown Urine pH 6.0 (5.0-7.0) 07/21/21 Unknown Ur Specific [place] 1.013 (1.003-1.030) 07/21/21 Unknown Urine Protein <15 mg/dl mg/dL (Negative) 07/21/21 Unknown Urine Glucose (UA) Neg mg/dL (Negative) 07/21/21 Unknown Urine Ketones Neg mg/dL (Negative) 07/21/21 Unknown Urine Blood Neg (Negative) 07/21/21 Unknown Urine Nitrite Neg (Negative) 07/21/21 Unknown Urine Bilirubin Neg (Negative) 07/21/21 Unknown Urine Urobilinogen 4.0 mg/dL (<2.0) 07/21/21 Unknown Ur Leukocyte Esterase Neg (Negative) 07/21/21 Unknown Urine WBC (Auto) < 1.0 /HPF (0.0-6.0) 07/21/21 Unknown Urine RBC (Auto) 1.0 /HPF (0.0-6.0) 07/21/21 Unknown Urine Mucus Few /HPF 07/21/21 Unknown Gan/IV: Voiding Method Toilet Active Medications - Current Medications Current Medications: Generic Name Dose Route Start Last Admin Trade Name Freq PRN Reason Stop Dose Admin Acetaminophen 650 mg 07/21/21 09:12 07/22/21 07:35 Acetaminophen 325 Mg Tab PO 650 mg Q4H PRN Administration Pain MILD(1-3)/Fever >100.5/TAN Carvedilol 3.125 mg 07/21/21 22:00 07/24/21 09:50 Carvedilol 3.125 Mg Tab PO 3.125 mg BID JITENDRA Administration Furosemide 20 mg 07/24/21 18:00 Furosemide 20 Mg/2 Ml Inj IV 0600,1800 JITENDRA Lisinopril 2.5 mg 07/23/21 10:00 07/24/21 09:50 Lisinopril 5 Mg Tab PO 2.5 mg QDAY JITENDRA Administration Morphine Sulfate 2 mg 07/21/21 09:12 07/23/21 17:33 Morphine 2 Mg/1 Ml Inj IV 2 mg Q4H PRN Administration Pain, Moderate (4-6) Ondansetron HCl 4 mg 07/21/21 09:12 Ondansetron 4 Mg/2 Ml Inj IV Q8H PRN Nausea And Vomiting Pantoprazole Sodium 20 mg 07/22/21 07:30 07/24/21 09:50 Pantoprazole 20 Mg Tab PO 20 mg QDAC JITENDRA Administration Sodium Chloride 10 ml 07/21/21 10:00 07/24/21 09:51 Sodium Chloride 0.9% 10 Ml Flush Syringe IV 10 ml BID JITENDRA Administration Sodium Chloride 10 ml 07/21/21 09:12 Sodium Chloride 0.9% 10 Ml Flush Syringe IV PRN PRN LINE FLUSH
--- NOTE | 2021-07-24 14:07 | Progress Note ---
Assessment and Plan With his newly diagnosed cardiomyopathy and chest pain, schedule coronary angiography in a.m. He may also benefit from right heart catheterization in view of severe pulmonary hypertension of unexplained etiology. - Patient Problems (1) Acute HFrEF (heart failure with reduced ejection fraction) Current Visit: Yes Status: Acute (2) Chest pain Current Visit: Yes Status: Acute (3) Dilated cardiomyopathy Current Visit: Yes Status: Acute (4) Severe pulmonary hypertension Current Visit: Yes Status: Acute (5) NSVT (nonsustained ventricular tachycardia) Current Visit: Yes Status: Acute (6) Elevated d-dimer Current Visit: Yes Status: Acute Subjective Date of service: 07/24/21 Principal diagnosis: Acute HFrEF, CMP Interval history: He feels better. No shortness of breath. Objective Vital Signs Temp Pulse Resp BP BP Pulse Ox 07/24/21 12:00 98.1 F 65 18 117/70 100 07/24/21 10:00 64 98 07/24/21 07:41 98.1 F 77 18 104/69 100 07/24/21 03:49 98.5 F 71 18 104/66 100 07/24/21 00:02 98.2 F 73 18 94/58 99 07/23/21 21:32 62 106/67 07/23/21 21:31 98.6 F 18 106/67 07/23/21 20:15 97 07/23/21 16:18 98.7 F 65 18 116/65 96 - Physical Examination General: No Apparent Distress HEENT: Positive: EOMI, Normocephaly, Mucus Membranes Moist Neck: Positive: neck supple, trachea midline, JVD/HJR Cardiac: Positive: Reg Rate and Rhythm, S1/S2 Lungs: Positive: clear to auscultation Neuro: Positive: Grossly Intact Abdomen: Positive: Soft, Active Bowel Sounds. Negative: Tender Skin: Positive: Clear. Negative: Rash Musculoskeletal: Normal Range of Motion Extremities: Present: normal. Absent: edema - Labs and Meds Comprehensive Metabolic Panel 07/24/21 Range/Units 11:13 Sodium 139 (137-145) mmol/L Potassium 4.1 (3.6-5.0) mmol/L Chloride 99.4 (98-107) mmol/L Carbon Dioxide 28 (22-30) mmol/L BUN 19 (9-20) mg/dL Creatinine 1.0 (0.8-1.3) mg/dL Glucose 109 H (75-100) mg/dL Calcium 9.3 (8.4-10.2) mg/dL - Imaging and Cardiology EKG: image reviewed - EKG Sinus rhythms and dysrhythmias: sinus rhythm Myocardial infarction: septal DC (old age or ind, anterior DC (old age or i
[2021-07-24] MEDS ORDERED: SODIUM CHLORIDE 0.9% 500 ML 500 ML IV SCH (15:00)
[2021-07-24] MEDS: FUROSEMIDE 20 MG/2 ML INJ IV SCH (17:31)
[2021-07-24] MEDS ORDERED: ALBUTEROL 2.5 MG/3 ML NEBU IH PRN (18:29)
[2021-07-25 06:08] LABS: BUN/Creatinine Ratio 22; Blood Urea Nitrogen 20 mg/dL (9-20); Calcium 8.9 mg/dL (8.4-10.2); Hemolysis Index 17
[2021-07-25] MEDS: FUROSEMIDE 20 MG/2 ML INJ IV SCH (06:41)
[2021-07-25] MEDS ORDERED: ASPIRIN 81 MG TAB CHEW PO NR (09:16)
[2021-07-25] MEDS ORDERED: SODIUM CHLORIDE 0.9% 500 ML 500 ML ONE (09:24)
[2021-07-25] MEDS ORDERED: HEPARIN 10,000 UNITS/10 ML VIAL ONE (09:34)
[2021-07-25] MEDS ORDERED: LIDOCAINE (2%) 20 MG/1 ML VIAL 50 ML MDV INFILTRATI ONE (09:34)
[2021-07-25] MEDS ORDERED: HEPARIN/NS 5000 UNIT/500ML 1,000 ML IR ONE (09:34)
[2021-07-25] MEDS ORDERED: VERAPAMIL 5 MG/2 ML INJ ONE (09:34)
[2021-07-25] MEDS ORDERED: NITROGLYCERIN SYRINGE 3 ML ONE (09:34)
[2021-07-25] MEDS ORDERED: MIDAZOLAM 2 MG/2 ML INJ ONE (09:35)
[2021-07-25] MEDS ORDERED: fentaNYL 100 MCG/2 ML INJ ONE (09:35)
[2021-07-25] MEDS ORDERED: SODIUM CHLORIDE 0.9% 500 ML 500 ML IV SCH (10:00)
[2021-07-25] MEDS ORDERED: HYDROcodone/ACETAMINOPHEN 5-325 MG TAB PO PRN (10:58)
[2021-07-25] MEDS ORDERED: traMADol 50 MG TAB PO PRN (10:58)
--- NOTE | 2021-07-25 11:14 | Progress Note ---
Assessment and Plan Patient is 61-year-old male patient with no significant past medical history presented to the emergency room 3 day history of progressive shortness of breath associated with orthopnea and recurrent substernal chest pressure/tightness Acute HFrEF Coronary artery disease Pulmonary hypertension Dilated cardiomyopathy Echo 07/21/2021-EF 15 to 20%. Severe global hypokinesis of LV. Mild diastolic dysfunction present impaired relaxation pattern. LV is mildly dilated. Mild aortic regurgitation. Mild to moderate mitral regurgitation. Mild tricuspid regurgitation. Moderate pulmonary hypertension. Moderate pleural effusion Left and right cardiac cath 07/25/2021-mild pulmonary hypertension PA wedge 23 mmHg, PA was 39 mmHg, RV was 38 mmHg, RA was 8 mmHg. Cardiac output of 4.68. Left heart cath revealed left main pain, LAD proximal 100%, circumflex and AV groove diffuse 20%, OM 1, 2 and 3 small to medium caliber diffuse disease, 10 to 20%. RCA dominant, proximal pain, mid 50%, distal pain. Small to medium caliber PDA, PLV are patent with mild luminal irregularities. Right to left collaterals feeding into the distal LAD with severe LV dysfunction, elevated left end-diastolic pressure. Plan: Patient for cardiac cath this a.m. See cath report for full detail Patient found to have TISSUE REWINDER of LAD and nonobstructive disease of circumflex and RCA Will have patient follow-up in the office as an outpatient in regards to TISSUE REWINDER of LAD Patient currently on Coreg and lisinopril Will initiate aspirin, Lipitor, and Aldactone Will stop IV Lasix and convert to Lasix 40 mg p.o. daily Plan of care discussed with patient who verbalized understanding and agreement Cardiac status otherwise stable Patient to follow-up with Dr. Whatley, [facility] inbound ingredient logistics specialist, on 07/29/2021 at 9:45 AM in our [place] location. Phone #[phone] Patient seen in conjunction with Dr. Woodall who agrees with this plan of care - Patient Problems (1) CAD (coronary artery disease) Current Visit: Yes Status: Acute (2) Acute HFrEF (heart failure with reduced ejection fraction) Current Visit: Yes Status: Acute (3) Chest pain Current Visit: Yes Status: Acute (4) Dilated cardiomyopathy Current Visit: Yes Status: Acute (5) Severe pulmonary hypertension Current Visit: Yes Status: Acute (6) Shortness of breath Current Visit: Yes Status: Acute Subjective Date of service: 07/25/21 Principal diagnosis: Acute HFrEF, CMP Interval history: Patient with cardiac cath this a.m. Patient not currently on monitor however patient was previously sinus 60s with no events. However a lot of artifact on telemetry Objective Vital Signs Temp Pulse Resp BP BP Pulse Ox 07/25/21 08:08 98.5 F 66 18 105/70 100 07/25/21 07:45 98 07/25/21 03:58 98.8 F 74 18 104/62 99 07/24/21 23:44 98.5 F 78 18 97/59 99 07/24/21 22:00 66 18 98 07/24/21 21:34 70 115/70 07/24/21 20:30 98.4 F 70 18 115/70 99 07/24/21 18:27 98 07/24/21 15:36 98.1 F 69 18 105/63 98 07/24/21 12:00 98.1 F 65 18 117/70 100 - Physical Examination General: No Apparent Distress HEENT: Positive: EOMI, Normocephaly, Mucus Membranes Moist Neck: Positive: neck supple, trachea midline, JVD/HJR Cardiac: Positive: Reg Rate and Rhythm Lungs: Positive: Decreased Breath Sounds Neuro: Positive: Grossly Intact Abdomen: Positive: Soft, Active Bowel Sounds. Negative: Tender Skin: Positive: Clear. Negative: Rash Musculoskeletal: Normal Range of Motion Extremities: Present: normal. Absent: edema - Labs and Meds Comprehensive Metabolic Panel 07/24/21 07/25/21 Range/Units 11:13 05:28 Sodium 139 137 (137-145) mmol/L Potassium 4.1 4.0 (3.6-5.0) mmol/L Chloride 99.4 99.4 (98-107) mmol/L Carbon Dioxide 28 27 (22-30) mmol/L BUN 19 20 (9-20) mg/dL Creatinine 1.0 0.9 (0.8-1.3) mg/dL Glucose 109 H 145 H (75-100) mg/dL Calcium 9.3 8.9 (8.4-10.2) mg/dL - Imaging and Cardiology EKG: image reviewed - Telemetry EKG Rhythm: Sinus Rhythm - EKG Sinus rhythms and dysrhythmias: sinus rhythm Myocardial infarction: septal RI (old age or ind, anterior RI (old age or i
--- NOTE | 2021-07-25 11:44 | Cardiac Catherization Report ---
DATE OF SERVICE: 07/25/2021 PROCEDURE: Left and right heart catheterization. CLINICAL INFORMATION: A 61-year-old -[place]aj[place] gentleman who presents with acute systolic heart failure, severe LV dysfunction with severe pulmonary hypertension, is here for left and right heart catheterization. The patient was done with moderate sedation started at 10:27 finished at 10:42, with 15 minutes of moderate sedation. DESCRIPTION OF PROCEDURE: Right and left heart catheterization was done. Right heart catheterization was done via the right brachial vein. A 6-Afghan sheath placed in. Left heart catheterization was done via the right radial artery, sterile technique and local anesthesia. A 6-Afghan radial sheath inserted. Right heart catheterization was done showed wedge of 23 mmHg, PA was 39 mmHg, RV was 38 mmHg, RA was 8 mmHg. The patient has no step up or step down with Qp/Qs 1. Cardiac output by Marquise was 6.7, cardiac index was 2.56, PVR was 51 D/S. SVR was 1591 D/S. The patient's left heart catheterization: Left system with JL3.5 catheter. Left main is a medium to large caliber patent. LAD proximal is 100%. Circumflex in AV groove is a medium caliber vessel, diffuse 20%. OM1, 2 and 3 are small to medium caliber vessel, patent with diffuse disease, 20%. RCA is a large, dominant vessel engaged with JR4, proximal patent, mid 50%, distal patent. PDA, PLV are small to medium caliber was patent, with mild luminal irregularities. You see collaterals from left to right from the PDA into the distal LAD. LV gram done in JAZIEL and WAHL view shows severe LV dysfunction, EF 15%. LVEDP at 30 mmHg, LV is 144, aortic is 144/80. no gradient across the aortic valve on pullback. The 5-Afghan catheters all taken over a guidewire. A 6-Afghan radial sheath was discontinued. Radial band applied A 6-Afghan brachial sheath was discontinued. A pressure dressing applied. SUMMARY: Mild pulmonary hypertension, PA wedge was 23 mmHg, PA was 39 mmHg, RV was 38 mmHg, RA was 8 mmHg. Cardiac output of 4.68. Cardiac index was 2.56. No step up or step down. Left heart catheterization revealed left main patent, LAD proximal 100%, circumflex in AV groove diffuse 20%. OM1, 2 and 3 small to medium caliber, diffuse disease, 10%-20%. RCA dominant, proximal patent, mid 50%, distal patent. Small to medium caliber PDA, PLV are patent with mild luminal irregularities. You see right to left collaterals feeding into the distal LAD with severe LV dysfunction, elevated left end-diastolic pressure. RECOMMENDATIONS: The patient will be optimized medically and the patient's coronary artery disease out of proportion of LV function. We will consider PCI of DISTRIBUTOR OF DIRECTORIES of the LAD once compensated. Discussed this with the patient in detail. TID: [id number] RECEIPT: [id number] VRM/SAY
[2021-07-25] MEDS: PANTOPRAZOLE 20 MG TAB PO SCH (12:05)
[2021-07-25] MEDS: carvediloL 3.125 MG TAB PO SCH (12:05)
[2021-07-25] MEDS: LISINOPRIL 5 MG TAB PO SCH (12:06)
[2021-07-25] MEDS ORDERED: SODIUM CHLORIDE IRRI 500 ML 0 ML IR ONE (12:33)
[2021-07-25 12:42] VITALS: BP 135/85
--- NOTE | 2021-07-25 13:47 | Discharge Summary ---
Providers - Providers Date of Admission: 07/21/21 09:14 Date of discharge: 07/25/21 Attending physician: YESENIA HERNANDEZ 07/23/21 09:00 Consult to Physician [CONS] Routine Comment: Consulting Provider: DARLINE SANDERS Physician Instructions: Reason For Exam: Dilated cardiomyopathy/new onset systolic CHF 07/25/21 10:59 Consult to Cardiac Rehabilitation [CONS] Routine Reason For Exam: Cardiac Rehab Evaluation Primary care physician: PRINCIPAL PRODUCT MANAGER Hospitalization Reason for admission: Worsening shortness of breath Condition: Stable Pertinent studies: CTA chest no evidence of PE interstitial edema small right pleural effusion anasarca multiple nonspecific pulmonary nodules patient needs to pulmonary physician Chest x-ray without contrast; Echo-EF 15 to 20%. Severe global hypokinesis of LV. Mild diastolic dysfunction present impaired relaxation pattern. LV is mildly dilated. Mild aortic regurgitation. Mild to moderate mitral regurgitation. Mild tricuspid regurgitation. Moderate pulmonary hypertension. Moderate pleural effusion Procedures: Left and right cardiac cath 07/25/2021: -mild pulmonary hypertension PA wedge 23 mmHg, PA was 39 mmHg, RV was 38 mmHg, RA was 8 mmHg. Cardiac output of 4.68. Left heart cath revealed left main pain, LAD proximal 100%, circumflex and AV groove diffuse 20%, OM 1, 2 and 3 small to medium caliber diffuse disease, 10 to 20%. RCA dominant, proximal pain, mid 50%, distal pain. Small to medium caliber PDA, PLV are patent with mild luminal irregularities. Right to left collaterals feeding into the distal LAD with severe LV dysfunction, elevated left end-diastolic pressure. Hospital course: 61-year-old male patient with no significant past medical history presented to the emergency room with shortness of breath of 1 to 2 days duration , Patient did not have similar symptoms in the past, denies chest pain, sometimes feels short of breath on activity Patient denies any fever or cough, no upper respiratory symptoms, denies nausea vomiting or abdominal pain Initial work-up in the emergency room On chest x-ray mild CHF/volume overload which is new and patient's proBNP is high consistent with congestive heart failure probably new onset. Patient was admitted to the hospital placed on antiplatelet medications, evaluated by cargo worker, echocardiogram showed dilated cardiomyopathy with ejection fraction of 15 to 20%, optimized his medications subsequently patient underwent left heart catheterization. Which showed chronic total occlusion of LAD. Patient's medications were optimized and cardiology cleared for discharge and recommended the patient follow-up with them in the office for further evaluation and management of ENGINE WIPER of LAD. Today patient is comfortable, no new complaints, vital signs stable, physical examination prior to discharge did not show any new changes, patient is hemodynamically and clinically stable at discharge. Discharge diagnosis: -- New onset systolic congestive heart failure; Echo; LVEF 15 to 20% Severe global hypokinesis IV diuretics, input output monitoring Low-sodium diet, fluid restriction Low-dose beta-blockers, lisinopril Cardiology evaluated and underwent left heart catheterization Chronic total occlusion[ENGINE WIPER] of LAD, medications optimized Cardiology recommended follow-up as outpatient for further evaluation management Patient verbalized understanding Discharge diagnosis: --Elevated D-dimers; CTA chest negative for PE, small multiple lung nodules Lower extremity venous Doppler to rule out DVT --Multiple small lung nodules on CTA chest Patient will follow up lumber salvager to repeat the CT in a few months To monitor the nodules --Dilated cardiomyopathy; EF 15 to 20% Antifailure medications , possible ischemia work-up cardiology consult --Hypertension; Low-dose Coreg, as needed hydralazine Monitor blood pressures adjust as needed --Severe pulmonary hypertension; Continue current management --DVT prophylaxis; Lovenox subcutaneous --full code status Stable at discharge Disposition: 01 HOME / SELF CARE / HOMELESS Final Discharge Diagnosis (Prints w/discharge instructions): New onset systolic congestive heart failure. Dilated cardiomyopathy EF 15 to 20%. Hypertension. Elevated D-dimer CTA chest negative Time spent for discharge: 35 minutes Core Measure Documentation - Palliative Care Palliative Care/ Comfort Measures: Not Applicable - Core Measures Any of the following diagnoses?: heart failure - Heart Failure Discharge Requirements ZENA/ARB for LVSD if EF <40%: Yes Beta tom at discharge: Yes Exam - Constitutional Vitals: Temp Pulse Resp BP Pulse Ox 98.5 F 70 20 135/85 100 07/25/21 11:42 07/25/21 11:42 07/25/21 11:42 07/25/21 11:42 07/25/21 11:42 General appearance: Present: no acute distress, mild distress, well-nourished - EENT Eyes: Present: PERRL, EOM intact - Neck Neck: Present: supple, normal ROM - Respiratory Respiratory effort: normal Respiratory: bilateral: diminished, negative: rales, rhonchi, wheezing - Cardiovascular Rhythm: regular Heart Sounds: Present: S1 & S2 - Extremities Extremities: no ischemia, No edema - Abdominal General gastrointestinal: Present: soft, non-tender, non-distended, normal bowel sounds - Integumentary Integumentary: Present: clear, warm - Musculoskeletal Musculoskeletal: strength equal bilaterally - Psychiatric Psychiatric: appropriate mood/affect, cooperative - Neurologic Neurologic: CNII-XII intact, moves all extremities Plan Activity: advance as tolerated Diet: low salt, other (Cardiac diet) Additional Instructions: Patient to follow-up with cargo worker Dr. Lindsay, [facility] ad operations specialist, 07/29/2021 9:45 AM at [place] office phone #[phone]. For worsening symptoms contact MD or go to the nearest emergency room as needed. Advised to follow primary care physician in 1 week. Advised to follow cargo worker per schedule. Advised to follow private lumber salvager for monitoring and for further evaluation of pulmonary nodules. Advised to comply with medications, diet, follow-up visits per schedule Follow up with: PRIMARY CAREMD [Primary Care Provider] - 7 Days URIEL BRONSON MD [Staff Physician] - 7 Days FARZANA LINDSAY MD [Staff Physician] - 07/29/21 Prescriptions: Spironolactone [Aldactone] 25 mg PO QDAY #30 tablet Aspirin [Aspirin BABY CHEW TAB] 81 mg PO QDAY #30 tab.chew carvediloL [Coreg] 3.125 mg PO BID #60 tablet Furosemide [Lasix TAB] 40 mg PO QDAY #30 tablet AtorvaSTATin [Lipitor] 40 mg PO QHS #30 tablet Pantoprazole [Protonix TAB] 20 mg PO QDAC #30 tablet. traMADoL [Ultram 50 MG tab] 50 mg PO Q8H PRN #15 tablet PRN Reason: Pain, Mild (1-3) lisinopriL [Zestril TAB] 2.5 mg PO QDAY #30 tablet
[2021-07-26] MEDS ORDERED: ASPIRIN 81 MG TAB CHEW PO SCH (10:00)
[2021-07-26] MEDS ORDERED: FUROSEMIDE 40 MG TAB PO SCH (10:00)
[2021-07-26] MEDS ORDERED: SPIRONOLACTONE 25 MG TAB PO SCH (10:00)
== END 2021-07-25 17:58 | disposition home or self-care (01) | DRG 286 ==
LOC: ED 05:35 → 4A 09:14
PROVIDERS: ADMIT Internal Medicine; ATTEND Internal Medicine
PROC: 4A023N7 Measurement of Cardiac Sampling and Pressure, Left Heart, Percutaneous Approach (ICD-10-PCS; principal; 2021-07-25)
PROC: B2111ZZ Fluoroscopy of Multiple Coronary Arteries using Low Osmolar Contrast (ICD-10-PCS; 2021-07-25)
PROC: B2151ZZ Fluoroscopy of Left Heart using Low Osmolar Contrast (ICD-10-PCS; 2021-07-25)
DX: I11.0 Hypertensive heart disease with heart failure (principal); I50.21 Acute systolic (congestive) heart failure; I47.2 Ventricular tachycardia; I42.9 Cardiomyopathy, unspecified; I42.0 Dilated cardiomyopathy; I25.10 Atherosclerotic heart disease of native coronary artery without angina pectoris; Z82.49 Family history of ischemic heart disease and other diseases of the circulatory system; I27.20 Pulmonary hypertension, unspecified
CPT/HCPCS: 36415; 71045; 71275; 80048; 80053; 81001; 82550; 82553; 82962; 83735; 83880; 84443; 84484; 85025; 85379; 85610; 85652; 85730; 86140; 93005; 93306; 93460; 94644; 96374; 99285; G0378; J1815; J3490; C1894; C8929; J1644; J1940; J2250; J2270; J3010; J3475; J7040; Q9967

== ENCOUNTER 2021-08-27 06:02 | Inpatient (IN) | payer SELFPAY ==
[2021-08-27] MEDS ORDERED: ASPIRIN 325 MG TAB PO ONE (06:39)
[2021-08-27] MEDS ORDERED: MORPHINE 4 MG/1 ML INJ IV ONE ×2 (06:39→09:34)
[2021-08-27] MEDS ORDERED: ONDANSETRON 4 MG/2 ML INJ IV ONE (06:39)
--- NOTE | 2021-08-27 06:42 | Emergency Department Report ---
ED Chest Pain HPI - General Chief Complaint: Chest Pain Stated Complaint: CHEST PAIN/EMMA Time Seen by Provider: 08/27/21 06:31 Source: patient, old records reviewed Mode of arrival: Wheelchair Limitations: No Limitations - History of Present Illness Initial Comments: 61-year-old male with a past medical history who presented here in July with no past medical history was subsequently admitted and diagnosed with multiple small nodules on CTA chest, dilated cardiomyopathy with a EF of 15 to 20%, hypertension, CAD, and pulmonary hypertension presents to the hospital complaining of chest pain since 1:30 AM. Patient states that he is having anterior sternal left-sided chest pain that feels like there is admitted and they are kicking him over and over again. Pain is worse with movement and palpation. Patient took ibuprofen 400 mg x 2 prior to ED arrival without improvement in pain. Positive shortness of breath and nausea without vomiting. Patient complains of cough productive of yellow sputum without fevers. Patient had pedal edema several days ago that has since resolved. Denies calf tenderness, leg edema, or history of PE/DVT. as per chart review: Echo 07/21/2021-EF 15 to 20%. Severe global hypokinesis of LV. Mild diastolic dysfunction present impaired relaxation pattern. LV is mildly dilated. Mild aortic regurgitation. Mild to moderate mitral regurgitation. Mild tricuspid regurgitation. Moderate pulmonary hypertension. Moderate pleural effusion Left and right cardiac cath 07/25/2021-mild pulmonary hypertension PA wedge 23 mmHg, PA was 39 mmHg, RV was 38 mmHg, RA was 8 mmHg. Cardiac output of 4.68. 07/25/2021 Left heart cath revealed left main pain, LAD proximal 100%, circumflex and AV groove diffuse 20%, OM 1, 2 and 3 small to medium caliber diffuse disease, 10 to 20%. RCA dominant, proximal pain, mid 50%, distal pain. Small to medium caliber PDA, PLV are patent with mild luminal irregularities. Right to left collaterals feeding into the distal LAD with severe LV dysfunction, elevated left end-diastolic pressure. Patient has since followed up with [facility] since discharge and is scheduled for an appointment in 2 months. He has been compliant with all his medication - Related Data Home Medications Medication Instructions Recorded Confirmed Last Taken lisinopriL [Zestril TAB] 5 mg PO QDAY 08/27/21 08/27/21 08/26/21 Previous Rx's Medication Instructions Recorded Last Taken Type Aspirin [Aspirin BABY CHEW TAB] 81 mg PO QDAY #30 tab.chew 07/25/21 08/26/21 Rx AtorvaSTATin [Lipitor] 40 mg PO QHS #30 tablet 07/25/21 08/26/21 Rx Furosemide [Lasix TAB] 40 mg PO QDAY #30 tablet 07/25/21 08/26/21 Rx Pantoprazole [Protonix TAB] 20 mg PO QDAC #30 tablet. 07/25/21 08/26/21 Rx Spironolactone [Aldactone] 25 mg PO QDAY #30 tablet 07/25/21 08/26/21 Rx carvediloL [Coreg] 3.125 mg PO BID #60 tablet 07/25/21 08/26/21 Rx traMADoL [Ultram 50 MG tab] 50 mg PO Q8H PRN #15 tablet 07/25/21 Unknown Rx Allergies Allergy/AdvReac Type Severity Reaction Status Date / Time No Known Allergies Allergy Unverified 07/10/16 23:43 Heart Score - HEART Score History: Moderately suspicious EKG: Non-specific Age: 45-65 Risk factors: > 3 risk factors or hx of atherosclerotic disease Troponin: < normal limit HEART Score: 5 - EKG Read Time Time EKG Completed: 06:10 EKG Read Time: 06:13 ED Review of Systems ROS: Stated complaint: CHEST PAIN/EMMA Other details as noted in HPI Comment: All other systems reviewed and negative ED Past Medical Hx - Past Medical History Previous Medical History?: Yes Hx Hypertension: Yes Hx Congestive Heart Failure: Yes Hx Diabetes: Yes Hx Asthma: No Hx COPD: No Hx HIV: No Additional medical history: cholesterol - Surgical History Past Surgical History?: No - Social History Smoking Status: Never Smoker Substance Use Type: None - Medications Home Medications: Home Medications Medication Instructions Recorded Confirmed Last Taken Type Aspirin [Aspirin BABY CHEW TAB] 81 mg PO QDAY #30 tab.chew 07/25/21 08/27/2101/07 Rx AtorvaSTATin [Lipitor] 40 mg PO QHS #30 tablet 07/25/21 08/27/21 08/26/21 Rx Furosemide [Lasix TAB] 40 mg PO QDAY #30 tablet 07/25/21 08/27/21 08/26/21 Rx Pantoprazole [Protonix TAB] 20 mg PO QDAC #30 tablet.dr 07/25/21 08/27/21 08/26/21 Rx Spironolactone [Aldactone] 25 mg PO QDAY #30 tablet 07/25/21 08/27/21 08/26/21 Rx carvediloL [Coreg] 3.125 mg PO BID #60 tablet 07/25/21 08/27/21 08/26/21 Rx traMADoL [Ultram 50 MG tab] 50 mg PO Q8H PRN #15 tablet 07/25/21 08/27/21 Unknow n Rx lisinopriL [Zestril TAB] 5 mg PO QDAY 08/27/21 08/27/21 08/26/21 History ED Physical Exam - General Limitations: No Limitations - Other Other exam information: General: Mild discomfort secondary to pain Head: Atraumatic Eyes: normal appearance ENT: Moist mucous membranes Neck: Normal appearance, no midline tenderness Chest: Clear to auscultation bilaterally, reproducible anterior sternal left- sided chest wall tenderness CV: Regular rate and rhythm Abdomen: Soft, normal bowel sounds, nontender, nondistended, no rebound or guarding Back: Normal inspection Extremity: Normal inspection, full range of motion, no calf tenderness or leg edema Neuro: Alert O x 3, no facial asymmetry, speech clear, no gross motor sensory deficit Psych: Appropriate behavior Skin: No rash ED Course Vital Signs 08/27/21 08/27/21 08/27/21 06:13 06:30 06:46 Temperature 98.1 F Pulse Rate 77 55 L 84 Respiratory 18 14 13 Rate Blood Pressure 166/85 157/89 Blood Pressure 171/91 [Right] O2 Sat by Pulse 96 96 94 Oximetry 08/27/21 08/27/21 07:14 09:52 Temperature Pulse Rate 72 Respiratory 18 16 Rate Blood Pressure Blood Pressure 168/69 [Right] O2 Sat by Pulse 97 Oximetry - Consultations Consultation #1: 08/27/21 09:52 case d/w DR stevenson with [facility], rec admission, IV lasix. HUONG score - Huong Score Age > 65: (0) No Aspirin use within the Past 7 Days: (1) Yes 3 or more CAD Risk Factors: (1) Yes 2 or more Angina events in past 24 hrs: (1) Yes Known CAD with more than 50% Stenosis: (1) Yes Elevated Cardiac Markers: (0) No ST Deviation Greater than 0.5mm: (0) No HUONG Score: 4 ED Medical Decision Making - Lab Data Result diagrams: 08/27/21 06:55 08/27/21 06:55 Lab Results 08/27/21 08/27/21 08/27/21 Range/Units 06:55 06:55 06:55 WBC 6.4 (4.5-11.0) K/mm3 RBC 4.63 (3.65-5.03) M/mm3 Hgb 12.8 (11.8-15.2) gm/dl Hct 37.8 (35.5-45.6) % MCV 82 L (84-94) fl MCH 28 (28-32) pg MCHC 34 (32-34) % RDW 17.0 H (13.2-15.2) % Plt Count 139 L (140-440) K/mm3 Lymph % (Auto) 40.0 H (13.4-35.0) % [place] % (Auto) 6.6 (0.0-7.3) % Eos % (Auto) 1.9 (0.0-4.3) % Baso % (Auto) 0.9 (0.0-1.8) % Lymph # (Auto) 2.6 (1.2-5.4) K/mm3 [place] # (Auto) 0.4 (0.0-0.8) K/mm3 Eos # (Auto) 0.1 (0.0-0.4) K/mm3 Baso # (Auto) 0.1 (0.0-0.1) K/mm3 Seg Neutrophils % 50.6 (40.0-70.0) % Seg Neutrophils # 3.3 (1.8-7.7) K/mm3 PT 14.3 (12.2-14.9) Sec. INR 1.00 (0.87-1.13) APTT 31.4 (24.2-36.6) Sec. Sodium 141 (137-145) mmol/L Potassium 4.1 (3.6-5.0) mmol/L Chloride 106.6 (98-107) mmol/L Carbon Dioxide 25 (22-30) mmol/L Anion Gap 14 mmol/L BUN 14 (9-20) mg/dL Creatinine 1.1 (0.8-1.3) mg/dL Estimated GFR > 60 ml/min BUN/Creatinine Ratio 13 % Glucose 124 H (75-100) mg/dL Calcium 8.8 (8.4-10.2) mg/dL Total Bilirubin 0.70 (0.1-1.2) mg/dL AST 19 (5-40) units/L ALT 19 (7-56) units/L Alkaline Phosphatase 66 (35-129) units/L Troponin T < 0.010 (0.00-0.029) ng/mL NT-Pro-B Natriuret Pep (0-900) pg/mL Total Protein 6.7 (6.3-8.2) g/dL Albumin 4.2 (3.9-5) g/dL Albumin/Globulin Ratio 1.7 % 08/27/21 08/27/21 Range/Units 06:55 09:52 WBC (4.5-11.0) K/mm3 RBC (3.65-5.03) M/mm3 Hgb (11.8-15.2) gm/dl Hct (35.5-45.6) % MCV (84-94) fl MCH (28-32) pg MCHC (32-34) % RDW (13.2-15.2) % Plt Count (140-440) K/mm3 Lymph % (Auto) (13.4-35.0) % [place] % (Auto) (0.0-7.3) % Eos % (Auto) (0.0-4.3) % Baso % (Auto) (0.0-1.8) % Lymph # (Auto) (1.2-5.4) K/mm3 [place] # (Auto) (0.0-0.8) K/mm3 Eos # (Auto) (0.0-0.4) K/mm3 Baso # (Auto) (0.0-0.1) K/mm3 Seg Neutrophils % (40.0-70.0) % Seg Neutrophils # (1.8-7.7) K/mm3 PT (12.2-14.9) Sec. INR (0.87-1.13) APTT (24.2-36.6) Sec. Sodium (137-145) mmol/L Potassium (3.6-5.0) mmol/L Chloride (98-107) mmol/L Carbon Dioxide (22-30) mmol/L Anion Gap mmol/L BUN (9-20) mg/dL Creatinine (0.8-1.3) mg/dL Estimated GFR ml/min BUN/Creatinine Ratio % Glucose (75-100) mg/dL Calcium (8.4-10.2) mg/dL Total Bilirubin (0.1-1.2) mg/dL AST (5-40) units/L ALT (7-56) units/L Alkaline Phosphatase (35-129) units/L Troponin T < 0.010 (0.00-0.029) ng/mL NT-Pro-B Natriuret Pep 2154 H (0-900) pg/mL Total Protein (6.3-8.2) g/dL Albumin (3.9-5) g/dL Albumin/Globulin Ratio % - EKG Data -: EKG Interpreted by Me (Old anterior [place]) EKG shows normal: sinus rhythm, ST-T waves (No STEMI) Rate: normal - EKG Data When compared to previous EKG there are: no significant change (Compared to July 25, 2021) - Radiology Data Radiology results: report reviewed CHEST 1 VIEW INDICATION / CLINICAL INFORMATION: Chest Pain. COMPARISON: Chest x-ray 07/21/2021 FINDINGS: SUPPORT DEVICES: None. HEART / MEDIASTINUM: Mild cardiomegaly, stable. LUNGS / PLEURA: Perihilar vascular markings remain increased and bilaterally interstitial and airspace opacities are present within the mid and lower lungs. BONES: No significant osseous abnormality. ADDITIONAL FINDINGS: No significant additional findings. IMPRESSION: 1. Persistent pattern of volume overload/CHF with features of pulmonary edema minimally changed from comparison study. - Medical Decision Making 61-year-old male presents to the hospital with chest pain since this morning. EKG unchanged. Troponin negative. Patient has history of CAD and cardiomyopathy with EF of 15%. Case discussed with Dr. Stevenson with [facility] who will consult on patient during admission. Patient treated with aspirin, morphine, and IV Lasix. Patient will be admitted to the hospitalist service Critical Care Time: No Critical care attestation.: If time is entered above; I have spent that time in minutes in the direct care of this critically ill patient, excluding procedure time. ED Disposition Clinical Impression: CAD (coronary artery disease), Acute HFrEF (heart failure with reduced ejection fraction), Chest pain Disposition: 09 ADMITTED INPATIENT Is pt being admited?: Yes Condition: Stable Time of Disposition: 10:55
--- NOTE | 2021-08-27 07:05 | XRay Report ---
CHEST 1 VIEW INDICATION / CLINICAL INFORMATION: Chest Pain. COMPARISON: Chest x-ray 07/21/2021 FINDINGS: SUPPORT DEVICES: None. HEART / MEDIASTINUM: Mild cardiomegaly, stable. LUNGS / PLEURA: Perihilar vascular markings remain increased and bilaterally interstitial and airspac e opacities are present within the mid and lower lungs. BONES: No significant osseous abnormality. ADDITIONAL FINDINGS: No significant additional findings. IMPRESSION: 1. Persistent pattern of volume overload/CHF with features of pulmonary edema minimally changed from comparison study. Signer Name: Lexx Jacob II, MD Signed: 08/27/2021 7:00 AM Workstation Name: [id number]
[2021-08-27 07:26] LABS: Basophils # (Auto) 0.1 K/mm3 (0.0-0.1); Basophils % (Auto) 0.9 % (0.0-1.8); Eosinophils # (Auto) 0.1 K/mm3 (0.0-0.4); Eosinophils % (Auto) 1.9 % (0.0-4.3); Hematocrit 37.8 % (35.5-45.6); Hemoglobin 12.8 gm/dl (11.8-15.2); Lymphocytes # (Auto) 2.6 K/mm3 (1.2-5.4); Mean Corpuscular HGB Conc 34 % (32-34); Mean Corpuscular Volume 82 fl (84-94); Monocytes # (Auto) 0.4 K/mm3 (0.0-0.8); Monocytes % (Auto) 6.6 % (0.0-7.3); Platelet Count 139 K/mm3 (140-440); Red Blood Count 4.63 M/mm3 (3.65-5.03)
[2021-08-27 07:58] LABS: Partial Thromboplastin Time 31.4 Sec. (24.2-36.6)
[2021-08-27 08:26] LABS: Alanine Aminotransferase 19 units/L (7-56); Albumin 4.2 g/dL (3.9-5); BUN/Creatinine Ratio 13; Blood Urea Nitrogen 14 mg/dL (9-20); Calcium 8.8 mg/dL (8.4-10.2); Hemolysis Index 6
[2021-08-27] MEDS ORDERED: FUROSEMIDE 40 MG/4 ML INJ IV ONE (09:35)
[2021-08-27] MEDS ORDERED: oxyCODONE /ACETAMINOPHEN 5-325MG TAB PO PRN (10:55)
[2021-08-27] MEDS ORDERED: ONDANSETRON 4 MG/2 ML INJ IV PRN (10:55)
[2021-08-27] MEDS ORDERED: ACETAMINOPHEN 325 MG TAB PO PRN (10:55)
[2021-08-27] MEDS ORDERED: MORPHINE 4 MG/1 ML INJ IV PRN (10:55)
--- NOTE | 2021-08-27 10:58 | History and Physical Report ---
History of Present Illness Date of examination: 08/27/21 Chief complaint: Heart pain History of present illness: 61-year-old male with history of recently diagnosed systolic heart failure and h ypertension who presents with complaints of worsening chest pain x3 days. Patient reports having chest pain for the last month after diagnosis of heart failure. Over the last 3 days chest pain has gotten worse. Feels like pressure on his chest. Pain is worsened with lying flat with no alleviating factors. Medications and Allergies Allergies Allergy/AdvReac Type Severity Reaction Status Date / Time No Known Allergies Allergy Unverified 07/10/16 23:43 Home Medications Medication Instructions Recorded Confirmed Last Taken Type Aspirin [Aspirin BABY CHEW TAB] 81 mg PO QDAY #30 tab.chew 07/25/21 08/27/21 0 08/26/21 Rx AtorvaSTATin [Lipitor] 40 mg PO QHS #30 tablet 07/25/21 08/27/21 08/26/21 Rx Furosemide [Lasix TAB] 40 mg PO QDAY #30 tablet 07/25/21 08/27/21 08/26/21 Rx Pantoprazole [Protonix TAB] 20 mg PO QDAC #30 tablet. 07/25/21 08/27/21 08/26/21 Rx Spironolactone [Aldactone] 25 mg PO QDAY #30 tablet 07/25/21 08/27/21 08/26/21 Rx carvediloL [Coreg] 3.125 mg PO BID #60 tablet 07/25/21 08/27/21 08/26/21 Rx traMADoL [Ultram 50 MG tab] 50 mg PO Q8H PRN #15 tablet 07/25/21 08/27/21 Unkn own Rx lisinopriL [Zestril TAB] 5 mg PO QDAY 08/27/21 08/27/21 08/26/21 History Active Meds: Active Medications Acetaminophen (Acetaminophen 325 Mg Tab) 650 mg PO Q4H PRN PRN Reason: Pain MILD(1-3)/Fever >100.5/TAN Heparin Sodium (Porcine) (Heparin 5,000 Unit/1 Ml Vial) 5,000 unit SUB-Q BID JITENDRA Morphine Sulfate (Morphine 4 Mg/1 Ml Inj) 4 mg IV Q4H PRN PRN Reason: Pain , Severe (7-10) Ondansetron HCl (Ondansetron 4 Mg/2 Ml Inj) 4 mg IV Q8H PRN PRN Reason: Nausea And Vomiting Oxycodone/Acetaminophen (Oxycodone /Acetaminophen 5-325mg Tab) 1 tab PO Q6H PRN PRN Reason: Pain, Moderate (4-6) Sodium Chloride (Sodium Chloride 0.9% 10 Ml Flush Syringe) 10 ml IV BID JITENDRA Sodium Chloride (Sodium Chloride 0.9% 10 Ml Flush Syringe) 10 ml IV PRN PRN PRN Reason: LINE FLUSH Exam - Physical Exam Narrative exam: GENERAL: Well-developed well-nourished. Sitting on the side of the bed in no acute distress. HEENT: Normocephalic. Atraumatic. NECK: Supple. CHEST/LUNGS: CTAB on room air HEART/CARDIOVASCULAR: RRR. No murmur, rubs or gallops appreciated. ABDOMEN: +BS. NT/ND. SKIN: No rashes noted. NEURO: No focal motor deficit. Follows all commands and is ambulatory. MUSCULOSKELETAL: No joint effusion EXTREMITIES: No cyanosis, cubbing or edema. PSYCH: Cooperative. - Constitutional Vitals: Temp Pulse Resp BP Pulse Ox 98.1 F 72 16 168/69 97 08/27/21 06:13 08/27/21 09:52 08/27/21 09:52 08/27/21 09:52 08/27/21 09:52 HEART Score - HEART Score EKG: Non-specific Age: 45-65 Risk factors: > 3 risk factors or hx of atherosclerotic disease Troponin: Troponin T < 0.010 ng/mL (0.00-0.029) 08/27/21 06:55 Troponin: < normal limit Results - Labs CBC & Chem 7: 08/27/21 06:55 08/27/21 06:55 Labs: Laboratory Last Values WBC 6.4 K/mm3 (4.5-11.0) 08/27/21 06:55 RBC 4.63 M/mm3 (3.65-5.03) 08/27/21 06:55 Hgb 12.8 gm/dl (11.8-15.2) 08/27/21 06:55 Hct 37.8 % (35.5-45.6) 08/27/21 06:55 MCV 82 fl (84-94) L 08/27/21 06:55 MCH 28 pg (28-32) 08/27/21 06:55 MCHC 34 % (32-34) 08/27/21 06:55 RDW 17.0 % (13.2-15.2) H 08/27/21 06:55 Plt Count 139 K/mm3 (140-440) L 08/27/21 06:55 Lymph % (Auto) 40.0 % (13.4-35.0) H 08/27/21 06:55 [place] % (Auto) 6.6 % (0.0-7.3) 08/27/21 06:55 Eos % (Auto) 1.9 % (0.0-4.3) 08/27/21 06:55 Baso % (Auto) 0.9 % (0.0-1.8) 08/27/21 06:55 Lymph # (Auto) 2.6 K/mm3 (1.2-5.4) 08/27/21 06:55 [place] # (Auto) 0.4 K/mm3 (0.0-0.8) 08/27/21 06:55 Eos # (Auto) 0.1 K/mm3 (0.0-0.4) 08/27/21 06:55 Baso # (Auto) 0.1 K/mm3 (0.0-0.1) 08/27/21 06:55 Seg Neutrophils % 50.6 % (40.0-70.0) 08/27/21 06:55 Seg Neutrophils # 3.3 K/mm3 (1.8-7.7) 08/27/21 06:55 PT 14.3 Sec. (12.2-14.9) 08/27/21 06:55 INR 1.00 (0.87-1.13) 08/27/21 06:55 APTT 31.4 Sec. (24.2-36.6) 08/27/21 06:55 Sodium 141 mmol/L (137-145) 08/27/21 06:55 Potassium 4.1 mmol/L (3.6-5.0) 08/27/21 06:55 Chloride 106.6 mmol/L (98-107) 08/27/21 06:55 Carbon Dioxide 25 mmol/L (22-30) 08/27/21 06:55 Anion Gap 14 mmol/L 08/27/21 06:55 BUN 14 mg/dL (9-20) 08/27/21 06:55 Creatinine 1.1 mg/dL (0.8-1.3) 08/27/21 06:55 Estimated GFR > 60 ml/min 08/27/21 06:55 BUN/Creatinine Ratio 13 % 08/27/21 06:55 Glucose 124 mg/dL (75-100) H 08/27/21 06:55 Calcium 8.8 mg/dL (8.4-10.2) 08/27/21 06:55 Total Bilirubin 0.70 mg/dL (0.1-1.2) 08/27/21 06:55 AST 19 units/L (5-40) 08/27/21 06:55 ALT 19 units/L (7-56) 08/27/21 06:55 Alkaline Phosphatase 66 units/L (35-129) 08/27/21 06:55 Troponin T < 0.010 ng/mL (0.00-0.029) 08/27/21 06:55 NT-Pro-B Natriuret Pep 2154 pg/mL (0-900) H 08/27/21 06:55 Total Protein 6.7 g/dL (6.3-8.2) 08/27/21 06:55 Albumin 4.2 g/dL (3.9-5) 08/27/21 06:55 Albumin/Globulin Ratio 1.7 % 08/27/21 06:55 - Imaging and Cardiology Chest x-ray: report reviewed, image reviewed Assessment and Plan Assessment and plan: #Chest pain-Chronic -Patient reports continued chest pain since diagnosis of heart failure last month -Worsened with lying flat -troponin negative x3 -Report from cardiac cath last month removed -Cardiology consulted for further recommendations #Acute on chronic systolic heart failure #Dilated cardiomyopathy -TTE 07/2021: LVEF 15-20% -NT proBNP 2154 -Chest x-ray suggestive of pulmonary edema -Continue IV diuretics, strict I's/O, cardiac diet, fluid restriction -Will restart lisinopril, Coreg, spironolactone at home dose; patient reports compliance with medications and cardiology follow-up -Telemetry -Cardiology consulted, assistance appreciated #Coronary artery disease -Continue aspirin and statin #Hypertension -continue home BP medications #History of known lung nodules -Seen on CTA of chest in July/2021 -Repeat CT scan will be needed in 2 to 6 months outpatient #Advanced care planning -Disease education conducted, care plan discussed, diagnoses discussed, prognosis discussed, and patient acknowledges understanding with care plan -Time: +30 min Advance Directives: No VTE prophylaxis?: Chemical Plan of care discussed with patient/family: Yes
[2021-08-27] MEDS: ASPIRIN 81 MG TAB CHEW PO SCH (12:01)
[2021-08-27] MEDS: carvediloL 3.125 MG TAB PO SCH ×2 (12:01→21:06)
[2021-08-27] MEDS: LISINOPRIL 5 MG TAB PO SCH (12:02)
[2021-08-27] MEDS: PANTOPRAZOLE 20 MG TAB PO SCH (12:02)
[2021-08-27] MEDS: SPIRONOLACTONE 25 MG TAB PO SCH (12:46)
--- NOTE | 2021-08-27 16:17 | Consultation ---
History of Present Illness Consult date: 08/27/21 Requesting physician: MADELAINE ROCHE Consult reason: chest pain, congestive heart failure History of present illness: Pt is a 61-year-old male who recently established care with our group (Dr. Whatley). He was admitted to [facility] approximately 4-5 weeks ago, at which time he was diagnosed with acute systolic heart failure. Echocardiogram revealed an EF of 1520%. RVSP was 68 mmHg. Coronary angiography revealed occluded proximal LAD, 20% diffuse Cfx disease, as well as 50% mid RCA stenosis. Right heart catheterization revealed PASP and RVSP of 39 and 38 mmHg respectively. Pt had some PVCs and short runs of NSVT on telemetry that admission as well. Pt presents now with complaints of chest pain and SOB. He reports feeling back to his baseline at last discharge but notes progressively worsening SOB over the past 1-2 weeks. Associated with orthopnea and PND. Cannot walk more than a few feet without dyspnea. No edema. He is compliant with his home medications and sodium/fluid restrictions. Only drinks about 32oz of water per day. Pt also reports intermittent episodes of chest tightness and palpitations over the past month. He states "it feels like my heart is beating out of my chest." Associated with dizziness "like the floor is spinning." Chest pain-free currently. Tn neg x 3. ECG reveals no acute ischemic changes. BNP elevated. CXR reveals cardiomegaly and interstitial edema. Past History Past Medical History: CAD, heart failure, hyperlipidemia Past Surgical History: denies: CABG, PTCA Social history: smoking (cigars, marijuana), alcohol abuse (occasional) Family history: CAD, cancer, diabetes, hypertension, stroke Medications and Allergies Allergies Allergy/AdvReac Type Severity Reaction Status Date / Time No Known Allergies Allergy Unverified 07/10/16 23:43 Home Medications Medication Instructions Recorded Confirmed Last Taken Type Aspirin [Aspirin BABY CHEW TAB] 81 mg PO QDAY #30 tab.chew 07/25/21 08/27/21 08/26/21 Rx AtorvaSTATin [Lipitor] 40 mg PO QHS #30 tablet 07/25/21 08/27/21 08/26/21 Rx Furosemide [Lasix TAB] 40 mg PO QDAY #30 tablet 07/25/21 08/27/21 08/26/21 Rx Pantoprazole [Protonix TAB] 20 mg PO QDAC #30 tablet. 07/25/21 08/27/21 08/26/21 Rx Spironolactone [Aldactone] 25 mg PO QDAY #30 tablet 07/25/21 08/27/21 08/26/21 Rx carvediloL [Coreg] 3.125 mg PO BID #60 tablet 07/25/21 08/27/21 08/26/21 Rx traMADoL [Ultram 50 MG tab] 50 mg PO Q8H PRN #15 tablet 07/25/21 08/27/21 Unknown Rx lisinopriL [Zestril TAB] 5 mg PO QDAY 08/27/21 08/27/21 08/26/21 History Active Meds: Active Medications Acetaminophen (Acetaminophen 325 Mg Tab) 650 mg PO Q4H PRN PRN Reason: Pain MILD(1-3)/Fever >100.5/TAN Aspirin (Aspirin 81 Mg Tab Chew) 81 mg PO QDAY [facility] Last Admin: 08/27/21 12:01 Dose: 81 mg Atorvastatin Calcium (Atorvastatin 40 Mg Tab) 40 mg PO QHS [facility] Carvedilol (Carvedilol 3.125 Mg Tab) 3.125 mg PO BID [facility] Last Admin: 08/27/21 12:01 Dose: 3.125 mg Furosemide (Furosemide 40 Mg/4 Ml Inj) 40 mg IV 0600,1800 [facility] Heparin Sodium (Porcine) (Heparin 5,000 Unit/1 Ml Vial) 5,000 unit SUB-Q BID [facility] Lisinopril (Lisinopril 5 Mg Tab) 5 mg PO QDAY [facility] Last Admin: 08/27/21 12:02 Dose: 5 mg Morphine Sulfate (Morphine 4 Mg/1 Ml Inj) 4 mg IV Q4H PRN PRN Reason: Pain , Severe (7-10) Ondansetron HCl (Ondansetron 4 Mg/2 Ml Inj) 4 mg IV Q8H PRN PRN Reason: Nausea And Vomiting Oxycodone/Acetaminophen (Oxycodone /Acetaminophen 5-325mg Tab) 1 tab PO Q6H PRN PRN Reason: Pain, Moderate (4-6) Pantoprazole Sodium (Pantoprazole 20 Mg Tab) 20 mg PO QDAC [facility] Last Admin: 08/27/21 12:02 Dose: 20 mg Sodium Chloride (Sodium Chloride 0.9% 10 Ml Flush Syringe) 10 ml IV BID [facility] Sodium Chloride (Sodium Chloride 0.9% 10 Ml Flush Syringe) 10 ml IV PRN PRN PRN Reason: LINE FLUSH Spironolactone (Spironolactone 25 Mg Tab) 25 mg PO QDAY [facility] Last Admin: 08/27/21 12:46 Dose: 25 mg Review of Systems Constitutional: no fever, no chills, no sweats Ears, nose, mouth and throat: no nasal congestion, no sore throat Cardiovascular: chest pain, orthopnea, palpitations, rapid/irregular heart beat, lightheadedness, shortness of breath, dyspnea on exertion, paroxysmal nocturnal dyspnea, no edema, no syncope, no claudication Respiratory: shortness of breath, dyspnea on exertion, no cough Gastrointestinal: no abdominal pain, no nausea, no vomiting Genitourinary Male: no dysuria Musculoskeletal: no myalgias Integumentary: no rash, no wounds Neurological: no head injury, no numbness, no tingling, no seizures, no syncope, no headaches Endocrine: no polydipsia, no polyuria Hematologic/Lymphatic: no easy bruising, no easy bleeding Allergic/Immunologic: no anaphylaxis Physical Examination Vital Signs Temp Pulse Resp BP Pulse Ox 98.1 F 77 18 171/91 96 08/27/21 06:13 08/27/21 06:13 08/27/21 06:13 08/27/21 06:13 08/27/21 06:13 General appearance: no acute distress HEENT: Positive: EOMI, Normocephaly Neck: Negative: JVD/HJR Cardiac: Positive: Reg Rate and Rhythm, S1/S2 Lungs: Positive: Rales Neuro: Positive: Grossly Intact Abdomen: Positive: Soft. Negative: Tender Skin: Negative: Rash Musculoskeletal: No Pain Extremities: Present: warm. Absent: edema Results 08/27/21 06:55 08/27/21 06:55 Cardiac Enzymes 08/27/21 Range/Units 06:55 AST 19 (5-40) units/L Coagulation 08/27/21 Range/Units 06:55 PT 14.3 (12.2-14.9) Sec. INR 1.00 (0.87-1.13) APTT 31.4 (24.2-36.6) Sec. CBC 08/27/21 Range/Units 06:55 WBC 6.4 (4.5-11.0) K/mm3 RBC 4.63 (3.65-5.03) M/mm3 Hgb 12.8 (11.8-15.2) gm/dl Hct 37.8 (35.5-45.6) % Plt Count 139 L (140-440) K/mm3 Lymph # (Auto) 2.6 (1.2-5.4) K/mm3 [place] # (Auto) 0.4 (0.0-0.8) K/mm3 Eos # (Auto) 0.1 (0.0-0.4) K/mm3 Baso # (Auto) 0.1 (0.0-0.1) K/mm3 Comprehensive Metabolic Panel 08/27/21 Range/Units 06:55 Sodium 141 (137-145) mmol/L Potassium 4.1 (3.6-5.0) mmol/L Chloride 106.6 (98-107) mmol/L Carbon Dioxide 25 (22-30) mmol/L BUN 14 (9-20) mg/dL Creatinine 1.1 (0.8-1.3) mg/dL Glucose 124 H (75-100) mg/dL Calcium 8.8 (8.4-10.2) mg/dL AST 19 (5-40) units/L ALT 19 (7-56) units/L Alkaline Phosphatase 66 (35-129) units/L Total Protein 6.7 (6.3-8.2) g/dL Albumin 4.2 (3.9-5) g/dL - Imaging and Cardiology Echo: report reviewed Cardiac cath: report reviewed EKG: report reviewed, image reviewed - EKG Interpretation EKG: no acute changes EKG interpretations - EKG Sinus rhythms and dysrhythmias: sinus rhythm Myocardial infarction: anterior [place] (old age or i, lateral [place] (old age or in Assessment and Plan Assessment: Chest Pain CAD / [employer] of LAD Acute on Chronic HFrEF Dilated CMP (EF 15-20%) NSVT Mild Pulmonary HTN Tobacco Use H/o Recent COVID-19 Infection Echo 07/21/2021: severe global LV hypokinesis, EF 15-20%, mild diastolic dysunction, LV mildly dilated, mild AR, mild-moderate MR, mild TR, RVSP 68mmHg, no pericardial effusion. Plan: Recent LHC & RHC performed 07/25/2021 revealed mild pulm HTN, 100% occlusion of proximal LAD, otherwise 20% diffuse Cfx disease and 50% mid RCA stenosis. Awaiting outpatient PCI of [employer] of pLAD with Dr. Andres. Continue bASA & Atorvastatin 40mg. Continue IV Lasix 40mg BID. Resume Aldactone 25mg daily, Coreg 3.125mg BID, and Lisinopril 5mg daily. Initiate tele monitoring. If any significant NSVT, can titrate up BB or consider switching Coreg to Toprol XL. LifeVest vs ICD implantation were discussed with pt. He declines at this time because he is uninsured but plans to be enrolled via his new employer by September 16 and will reconsider at that time. Pt seen in conjunction with Dr. Woodall, who agrees with the assessment and plan of care. - Patient Problems (1) Chest pain Current Visit: Yes Status: Acute (2) CAD (coronary artery disease) Current Visit: Yes Status: Chronic Qualifiers: Coronary Disease-Associated Artery/Lesion type: [place] artery (3) Acute on chronic HFrEF (heart failure with reduced ejection fraction) Current Visit: Yes Status: Acute (4) Dilated cardiomyopathy Current Visit: Yes Status: Chronic (5) NSVT (nonsustained ventricular tachycardia) Current Visit: Yes Status: Chronic
[2021-08-27] MEDS: FUROSEMIDE 40 MG/4 ML INJ IV SCH (18:57)
[2021-08-27] MEDS: HEPARIN 5,000 UNIT/1 ML VIAL SUB-Q SCH (21:06)
[2021-08-28] MEDS: FUROSEMIDE 40 MG/4 ML INJ IV SCH (05:44)
[2021-08-28 06:42] LABS: BUN/Creatinine Ratio 12; Blood Urea Nitrogen 13 mg/dL (9-20); Calcium 8.9 mg/dL (8.4-10.2); Hemolysis Index 5
[2021-08-28 07:43] VITALS: BP 121/76
[2021-08-28] MEDS: ASPIRIN 81 MG TAB CHEW PO SCH (10:08)
[2021-08-28] MEDS: LISINOPRIL 5 MG TAB PO SCH (10:08)
[2021-08-28] MEDS: PANTOPRAZOLE 20 MG TAB PO SCH (10:08)
[2021-08-28] MEDS: carvediloL 3.125 MG TAB PO SCH (10:08)
[2021-08-28] MEDS: SPIRONOLACTONE 25 MG TAB PO SCH (10:08)
[2021-08-28] MEDS: HEPARIN 5,000 UNIT/1 ML VIAL SUB-Q SCH (10:09)
--- NOTE | 2021-08-28 10:29 | Discharge Summary ---
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 Also continue to take all medications as prescribed. Follow up with: PRIMARY MD MARGA [Primary Care Provider] - 3-5 Days Forms: Work/School Release Form
--- NOTE | 2021-08-28 10:48 | Progress Note ---
Assessment and Plan 61-year-old male with severe LV dysfunction coronary arterial disease hyperlipidemia is currently compensated LV dysfunction after being treated with IV diuretics. We will continue beta-tom ZENA inhibitor aspirin statin. Change to p.o. Lasix make that twice a week twice daily and the rest daily along with Aldactone. Patient will follow-up in the cardiology clinic. Patient has a stage PCI of the LAD in September. Patient wants to go home. - Patient Problems (1) Acute HFrEF (heart failure with reduced ejection fraction) Current Visit: Yes Status: Acute (2) CAD (coronary artery disease) Current Visit: Yes Status: Chronic Qualifiers: Coronary Disease-Associated Artery/Lesion type: [place] artery (3) Dilated cardiomyopathy Current Visit: Yes Status: Chronic (4) Heart failure Current Visit: No Status: Acute Qualifiers: Heart failure type: unspecified Heart failure chronicity: unspecified Qualified Code(s): I50.9 - Heart failure, unspecified (5) Severe pulmonary hypertension Current Visit: No Status: Acute (6) Shortness of breath Current Visit: No Status: Acute Subjective Date of service: 08/28/21 Principal diagnosis: chf Interval history: pt is feeling much better and wants to go home Objective Vital Signs Temp Pulse Resp BP BP Pulse Ox 08/28/21 08:44 98 08/28/21 07:40 98.6 F 69 20 121/76 99 08/28/21 03:54 98 F 66 20 134/74 98 08/27/21 23:33 98 08/27/21 19:57 98.3 F 68 20 145/84 98 08/27/21 19:50 96 08/27/21 19:45 97.8 F 75 18 118/53 08/27/21 15:46 67 20 129/74 99 08/27/21 15:30 88 20 129/74 08/27/21 15:16 61 16 129/74 97 08/27/21 15:00 67 21 129/74 94 08/27/21 14:46 67 24 129/74 91 08/27/21 14:30 65 22 129/74 98 08/27/21 14:16 71 22 139/88 95 08/27/21 14:00 77 25 H 134/84 94 08/27/21 13:57 74 16 122/74 96 08/27/21 13:46 63 12 134/84 98 08/27/21 13:30 75 26 H 142/77 94 08/27/21 13:16 71 23 146/86 87 08/27/21 13:00 67 25 H 143/78 93 08/27/21 12:46 79 19 143/78 96 08/27/21 12:30 74 23 143/78 98 08/27/21 12:16 84 22 143/78 91 08/27/21 12:00 66 21 139/67 95 08/27/21 11:46 70 19 151/100 94 08/27/21 11:30 75 20 135/80 96 08/27/21 11:16 80 26 H 158/86 90 08/27/21 11:00 78 21 166/100 96 - Physical Examination General: Appears Well, No Apparent Distress HEENT: Positive: EOMI, Normocephaly Neck: Positive: trachea midline. Negative: JVD/HJR Cardiac: Positive: Reg Rate and Rhythm Lungs: Positive: clear to auscultation Neuro: Positive: Grossly Intact Abdomen: Positive: Soft. Negative: Tender Skin: Negative: Rash Musculoskeletal: No Pain Extremities: Present: warm. Absent: edema - Labs and Meds Comprehensive Metabolic Panel 08/28/21 Range/Units 05:25 Sodium 144 (137-145) mmol/L Potassium 3.6 (3.6-5.0) mmol/L Chloride 106.4 (98-107) mmol/L Carbon Dioxide 27 (22-30) mmol/L BUN 13 (9-20) mg/dL Creatinine 1.1 (0.8-1.3) mg/dL Glucose 123 H (75-100) mg/dL Calcium 8.9 (8.4-10.2) mg/dL - Imaging and Cardiology EKG: report reviewed, image reviewed Echo: report reviewed Cardiac cath: report reviewed - Telemetry EKG Rhythm: Sinus Rhythm - EKG Sinus rhythms and dysrhythmias: sinus rhythm Myocardial infarction: anterior [place] (old age or i, lateral [place] (old age or in
--- NOTE | 2021-08-28 21:30 | Electrocardiograph Report ---
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
[2021-08-29] MEDS ORDERED: FUROSEMIDE 40 MG TAB PO SCH (10:00)
== END 2021-08-28 12:39 | disposition home or self-care (01) | DRG 291 ==
LOC: ED 06:02 → 4A 10:55
PROVIDERS: ADMIT Student in an Organized Health Care Education/Training Program; ATTEND Student in an Organized Health Care Education/Training Program
DX: I11.0 Hypertensive heart disease with heart failure (principal); I50.21 Acute systolic (congestive) heart failure; I47.1 Supraventricular tachycardia; E11.9 Type 2 diabetes mellitus without complications; E78.00 Pure hypercholesterolemia, unspecified; I27.20 Pulmonary hypertension, unspecified; I25.10 Atherosclerotic heart disease of native coronary artery without angina pectoris; I42.0 Dilated cardiomyopathy; Z83.3 Family history of diabetes mellitus; Z80.9 Family history of malignant neoplasm, unspecified; Z82.3 Family history of stroke; Z82.49 Family history of ischemic heart disease and other diseases of the circulatory system
CPT/HCPCS: 36415; 71045; 80048; 80053; 83880; 84484; 85025; 85610; 85730; 93005; G0378; J1644; J1940; J2270; J2405